=== PATIENT | male | born 1970 ===

== ENCOUNTER 2017-03-13 17:38 | Inpatient (IN) | payer MEDICARE, OTHER ==
--- NOTE | 2017-03-13 18:38 | C.PDOC ---
History Of Present Illness 46 year old male who was sent to ER by intermediate for scant blood in sputum from his tracheostomy. Patient states the same has happened before; however, with no significant findings. Patient reported to have pneumonia 1 months ago which has bee resolved. Denies any physical complaints. Time Seen by Provider: 03/13/17 18:26 Chief Complaint (Nursing): Medical Clearance History Per: Patient History/Exam Limitations: no limitations Onset/Duration Of Symptoms: Hrs Current Symptoms Are (Timing): Still Present Recent travel outside of the [place]: No Past Medical History Reviewed: Historical Data, Nursing Documentation, Vital Signs Vital Signs: Last Vital Signs Temp 98.2 F 03/13/17 23:58 Pulse 80 03/13/17 23:58 Resp 20 03/13/17 23:58 BP 148/82 03/13/17 23:58 Pulse Ox 97 03/13/17 23:58 - Medical History PMH: Anxiety, Depression, HTN, End Stage Renal Disease Surgical History: No Surg Hx Family History: States: Unknown Family Hx - Social History Hx Alcohol Use: No Hx Substance Use: No - Immunization History Hx Tetanus Toxoid Vaccination: No Hx Influenza Vaccination: No Hx Pneumococcal Vaccination: No Review Of Systems Constitutional: Negative for: Fever, Chills Gastrointestinal: Negative for: Nausea, Vomiting, Diarrhea Physical Exam - Physical Exam Appears: Non-toxic, No Acute Distress, Other (Thin tall black man) Skin: Normal Color, Warm, Dry Head: Atraumatic, Normacephalic Oral Mucosa: Moist Neck: Normal, Supple, Other (Tracheostomy with clear sputum) Chest: Symmetrical, No Tenderness Cardiovascular: Rhythm Regular, No Murmur Respiratory: Normal Breath Sounds, No Rales, No Rhonchi, No Wheezing Gastrointestinal/Abdominal: Soft, No Tenderness Extremity: Normal ROM (x4), Other (AV fistula to left upper arm) Neurological/Psych: Oriented x3, Normal Speech, Normal Cognition ED Course And Treatment - Laboratory Results Result Diagrams: 03/13/17 18:58 03/13/17 18:58 Lab Interpretation: Abnormal (no prior to compare: anemia, hyponatremia and dehydration, acute renal insufficiency, elev glu) ECG: Interpreted By Me, Viewed By Ms ECG Rhythm: Sinus Rhythm ECG Interpretation: Normal Rate From EC O2 Sat by Pulse Oximetry: 96 (Room air) Pulse Ox Interpretation: Normal - Radiology CXR: Interpreted by Me CXR Interpretation: Yes: Other (resolving RLL PNA (from 1 month ago, by history , no prior to compare here)) Progress Note: EKG, CXR, and blood culture ordered. Reevaluation Time: 19:30 Reassessment Condition: Improved - Physician Consult Information Outcome Of Conversation: 193: d/w Dr. Lisa Renteria, ok to Obs. Usual HD T/H/Sat, will arrange or d/c prior to tomorrow's session. Medical Decision Making Medical Decision Making: many lab abnormalities, no prior to compare, on HD T/H/Sat chronic anemia- prob anemia of CD renal insufficney and dehydration/hyponatremia in pt on HD Clear sputum now, scant blood streaked sputum may be related to tracheostomy: consider pulm/ENT consult in AM. Disposition Doctor Will See Patient In The: Hospital Counseled Patient/Family Regarding: Studies Performed, Diagnosis - Disposition Disposition: HOSPITALIZED Disposition Time: 19:31 Condition: GOOD - Clinical Impression Clinical Impression: Dehydration, Hyponatremia, Acute renal insufficiency - Scribe Statement The provider has reviewed the documentation as recorded by the Scribwindy Snyder All medical record entries made by the Eileenibwindy were at my direction and personally dictated by me. I have reviewed the chart and agree that the record accurately reflects my personal performance of the history, physical exam, medical decision making, and the department course for this patient. I have also personally directed, reviewed, and agree with the discharge instructions and disposition.
[2017-03-13 19:03] LABS: BASO # 0.1 K/uL (0.0-0.2); BASO % 0.8 % (0.0-2.0); EOS % 0.4 % (0.0-4.0); HEMATOCRIT 23.2 % (35.0-51.0); LYMPH # 1.2 K/uL (1.0-4.3); LYMPH % 14.4 % (20.0-40.0); MEAN CORPUSCULAR HEMOGLOBIN 31.3 pg (27.0-31.0); MEAN CORPUSCULAR HGB CONC 33.3 g/dL (33.0-37.0); MEAN PLATELET VOLUME 8.4 fL (7.2-11.7); MONO # 0.3 K/uL (0.0-0.8); MONO % 3.7 % (0.0-10.0); RED CELL DISTRIBUTION WIDTH 18.4 % (11.5-14.5); WHITE BLOOD COUNT 8.4 K/uL (4.8-10.8)
[2017-03-13 19:11] LABS: INR 0.9; POTASSIUM 4.6 mmol/L (3.6-5.2)
[2017-03-13 19:13] LABS: ALB/GLOB RATIO 1.2 (1.0-2.1); BILIRUBIN,TOTAL 0.5 mg/dL (0.2-1.3); TOTAL PROTEIN 5.8 g/dL (6.3-8.3)
[2017-03-13 19:14] LABS: CALCIUM 7.7 mg/dl (8.6-10.4)
[2017-03-13] MEDS ORDERED: Sodium Chloride 0.9% 1,000 ML IV ONE (19:25)
[2017-03-13] MEDS ORDERED: Azithromycin 500 MG in Sodium Chloride 0.9% 250 ML IVPB SCH (22:00)
[2017-03-13] MEDS ORDERED: Enoxaparin 30 mg Syringe SC SCH (22:30)
[2017-03-13] MEDS: MethylPREDNISolone 40 mg Vial IVP SCH (23:21)
--- NOTE | 2017-03-13 23:42 | CP.PCM.HP ---
History of Present Illness - History of Present Illness History of Present Illness: 46 years old male patient with past medical history of anxiety, depression, ESRD on hemodialysis, hypertension, S/P tracheostomy secondary to respiratory failure few months back sent to the emergency department from group home after having episode of bloody secretion from tracheostomy. Patient is also having mild shortness of breath at rest. Patient denies any chest pain, abdominal pain, limb swelling Patient is on antihypertensives for blood pressure control Severely deconditioned and bedbound with limited activity. No fever, nausea, vomiting, diarrhea Present on Admission - Present on Admission Any Indicators Present on Admission: No Past Patient History - Past Medical History & Family History Past Medical History?: Yes - Past Social History Smoking Status: Never Smoked - CARDIAC Hx Cardiac Disorders: Yes Hx Hypertension: Yes - PULMONARY Hx Respiratory Disorders: Yes Other/Comment: Respiratory failure s/p trach - NEUROLOGICAL Hx Neurological Disorder: No - HEENT Hx HEENT Problems: No - RENAL Hx Chronic Kidney Disease: Yes Hx Dialysis: Yes (Tue, Thus, Sat) Type of Dialysis Access: Left upper arm AV shunt Date of Last Dialysis Treatment: 03/12/17 - ENDOCRINE/METABOLIC Hx Endocrine Disorders: Yes Hx Diabetes Mellitus Type 2: Yes - HEMATOLOGICAL/ONCOLOGICAL Hx Blood Disorders: No - INTEGUMENTARY Hx Dermatological Problems: No - MUSCULOSKELETAL/RHEUMATOLOGICAL Hx Musculoskeletal Disorders: No Hx Falls: No - GASTROINTESTINAL Hx Gastrointestinal Disorders: Yes Other/Comment: Dysphagia - GENITOURINARY/GYNECOLOGICAL Hx Genitourinary Disorders: No - PSYCHIATRIC Hx Psychophysiologic Disorder: Yes Hx Anxiety: Yes Hx Depression: Yes Hx Substance Use: No - SURGICAL HISTORY Hx Surgeries: Yes Hx Vascular Access Device: Yes - ANESTHESIA Hx Anesthesia: Yes Hx Anesthesia Reactions: No Hx Malignant Hyperthermia: No Has any member of the family had a problem w/ anesthesia?: No Meds Home Medications: Home Medication List Medication Instructions Recorded Confirmed Type Azithromycin [Zithomax 500mg IV] 500 mg IV DAILY #3 pds 03/17/17 Rx Piperacill/Tazo 2.25gm in Dex 2.25 gm IVPB Q8H #28 bag 03/17/17 Rx [Zosyn 2.25 Gm IV Premix] Allergies/Adverse Reactions: Allergies Allergy/AdvReac Type Severity Reaction Status Date / Time No Known Allergies Allergy Unverified 03/13/17 17:52 Results - Vital Signs Recent Vital Signs: Last Vital Signs Temp 98 F 07/21/17 22:01 Pulse 81 03/13/17 22:01 Resp 20 03/13/17 22:13 BP 150/81 03/13/17 22:01 Pulse Ox 98 03/13/17 22:13 - Labs Result Diagrams: 03/17/17 09:54 03/17/17 09:54 Assessment & Plan (1) Acute renal insufficiency Status: Acute (2) Anemia Status: Acute (3) CHF (congestive heart failure) Status: Acute (4) Dehydration Status: Acute (5) ESRD (end stage renal disease) on dialysis Status: Acute (6) HTN (hypertension) Status: Acute (7) Hyponatremia Status: Acute (8) Pneumonia Status: Acute (9) SOB (shortness of breath) Status: Acute - Assessment and Plan (Free Text) Plan: meds and labs reviewed pulmo consult ID consult Cardio consult genaro same azithro lovenox solumedrol seroquel ceftriaxone close monitoring
[2017-03-13] MEDS: Azithromycin 500 MG in Sodium Chloride 0.9% 250 ML IVPB SCH (23:53)
[2017-03-14] MEDS: MethylPREDNISolone 40 mg Vial IVP SCH ×3 (06:21→22:25)
[2017-03-14] MEDS: Albuterol-Ipratrop 3 mg / 0.5 (3 ml) UD INH SCH ×4 (06:31→19:34)
[2017-03-14] MEDS: (Novolog) Insulin Aspart, Recombinant 100 u/ml 10 ml vial SC SCH ×4 (07:30→23:14)
--- NOTE | 2017-03-14 09:24 | RAD ---
PROCEDURE: CHEST RADIOGRAPH, 1 VIEW HISTORY: SOB COMPARISON: No prior study available for comparison FINDINGS: LUNGS: In situ tracheostomy tube in good position. Patchy right lower lobe infiltrate with questionable small bilateral effusions. Central pulmonary vasculature is also slightly increased; rule out rule out mild chronic compensated pulmonary edema/CHF PLEURA: As above. No apparent pneumothorax CARDIOVASCULAR: Heart appears enlarged OSSEOUS STRUCTURES: No significant abnormalities. VISUALIZED UPPER ABDOMEN: Normal. OTHER FINDINGS: None. IMPRESSION: In situ tracheostomy tube in good position. Patchy right lower lobe infiltrate with questionable small bilateral effusions. Central pulmonary vasculature is also slightly increased; rule out rule out mild chronic compensated pulmonary edema/CHF
[2017-03-14 09:48] LABS: IRON 67 ug/dL (49-181)
[2017-03-14] MEDS: Multivitamin Vitamin B Complex (Nephro-Vite) Tab PO SCH ×2 (10:00→12:55)
[2017-03-14] MEDS: Ferric Sodium Gluconat Complex 62.5 mg/5 ml Vial IVP SCH (10:16)
[2017-03-14] MEDS: Epoetin Alfa 10,000 unit/ml Dialysis IV SCH (10:17)
[2017-03-14] MEDS: Paricalcitol 2 mcg/ml Inj IV SCH (10:17)
--- NOTE | 2017-03-14 13:12 | CP.PCM.PN ---
Subjective - Date & Time of Evaluation Date of Evaluation: 03/14/17 Time of Evaluation: 09:40 - Subjective Subjective: clinically same Objective - Vital Signs/Intake and Output Vital Signs (last 24 hours): Temp Pulse Resp BP Pulse Ox 97.8 F 92 H 18 166/90 H 100 03/14/17 12:20 03/14/17 12:20 03/14/17 12:20 03/14/17 12:20 03/14/17 09:20 Intake and Output: 03/14/17 03/14/17 06:59 18:59 Intake Total 100 710 Balance 100 710 - Medications Medications: Current Medications Acetaminophen (Tylenol 325mg Tab) 650 mg PO Q4 PRN PRN Reason: Pain, moderate (4-7) Albuterol/Ipratropium (Duoneb 3 Mg/0.5 Mg (3 Ml) Ud) 3 ml INH RQ6 [facility] Last Admin: 03/14/17 08:44 Dose: 3 ml Amlodipine Besylate (Norvasc) 10 mg PO DAILY [facility] Amlodipine Besylate (Norvasc) 10 mg PO DAILY [facility] Calcium Acetate (Phoslo) 667 mg PO TID [facility] Last Admin: 03/14/17 12:54 Dose: 667 mg Clonazepam (Klonopin) 1 mg PO Q8 [facility] Last Admin: 03/14/17 06:17 Dose: 1 mg Epoetin David (Procrit) 10,000 unit IV TTS [facility] Last Admin: 03/14/17 10:17 Dose: 10,000 unit Escitalopram Oxalate (Lexapro) 10 mg PO DAILY [facility] Famotidine (Pepcid) 20 mg PO DAILY [facility] Ferric Sodium Gluconate Complex (Ferrlecit) 125 mg IVP TTS [facility] Stop: 03/19/17 10:01 Last Admin: 03/14/17 10:16 Dose: 125 mg Azithromycin 500 mg/ Sodium (Chloride) 250 mls @ 250 mls/hr IVPB Q24H [facility] Last Admin: 03/13/17 23:53 Dose: 250 mls/hr Ceftriaxone Sodium 1 gm/ (Sodium Chloride) 100 mls @ 100 mls/hr IVPB Q24H [facility] Last Admin: 03/13/17 23:52 Dose: 100 mls/hr Insulin Aspart (Novolog) 0 unit SC ACHS [facility] PRN Reason: Protocol Methylprednisolone (Solu-Medrol) 40 mg IVP Q8H [facility] Last Admin: 03/14/17 06:21 Dose: 40 mg Metoprolol Tartrate (Lopressor) 25 mg PO BID [facility] Paricalcitol (Zemplar) 2 mcg IV TTS [facility] Last Admin: 03/14/17 10:17 Dose: 2 mcg Quetiapine Fumarate (Seroquel) 50 mg PO HS [facility] Last Admin: 03/13/17 23:26 Dose: 50 mg Vitamin B Complex/Vit C/Folic Acid (Nephro-Autumn) 1 tab PO DAILY [facility] Last Admin: 03/14/17 12:55 Dose: 1 tab - Labs Labs: PT 10.4 SECONDS (9.7-12.2) 03/13/17 18:58 INR 0.9 03/13/17 18:58 APTT 34 SECONDS (21-34) 03/13/17 18:58 - Constitutional Appears: Well - Head Exam Head Exam: ATRAUMATIC, NORMAL INSPECTION, NORMOCEPHALIC - Eye Exam Eye Exam: EOMI, Normal appearance, PERRL Pupil Exam: NORMAL ACCOMODATION, PERRL - ENT Exam ENT Exam: Mucous Membranes Moist, Normal Exam - Neck Exam Neck Exam: Full ROM, Normal Inspection. absent: Lymphadenopathy - Respiratory Exam Respiratory Exam: Decreased Breath Sounds - Cardiovascular Exam Cardiovascular Exam: REGULAR RHYTHM, +S1, +S2 - GI/Abdominal Exam GI & Abdominal Exam: Soft, Diminished Bowel Sounds - Rectal Exam Rectal Exam: Deferred Assessment and Plan (1) Acute renal insufficiency Status: Acute (2) Anemia Status: Acute (3) CHF (congestive heart failure) Status: Acute (4) Dehydration Status: Acute (5) ESRD (end stage renal disease) on dialysis Status: Acute (6) HTN (hypertension) Status: Acute (7) Hyponatremia Status: Acute (8) Pneumonia Status: Acute (9) SOB (shortness of breath) Status: Acute - Assessment and Plan (Free Text) Plan: Patient stable Status post transfusion 2 PRBC Mnitor H&H Hemodialysis Continue antibiotics accucheks insulin procrit BP control pulgeraldine rivers on board
--- NOTE | 2017-03-14 13:56 | CP.PCM.CON ---
History of Present Illness - History of Present Illness History of Present Illness: pt seen and examined full consult is dictated #[id number] s/p transfusion of 2 u prbc, s/p hd uf about 3 lit f/u h/h in am Past Patient History - Past Medical History & Family History Past Medical History?: Yes - Past Social History Smoking Status: Never Smoked - CARDIAC Hx Hypertension: Yes - PULMONARY Hx Respiratory Disorders: Yes Other/Comment: Respiratory failure s/p trach - NEUROLOGICAL Hx Neurological Disorder: No - HEENT Hx HEENT Problems: No - RENAL Hx Chronic Kidney Disease: Yes Hx Dialysis: Yes (Tue, Thus, Sat) Type of Dialysis Access: Left upper arm AV shunt Date of Last Dialysis Treatment: 03/12/17 - ENDOCRINE/METABOLIC Hx Endocrine Disorders: Yes Hx Diabetes Mellitus Type 2: Yes - HEMATOLOGICAL/ONCOLOGICAL Hx Blood Disorders: No - INTEGUMENTARY Hx Dermatological Problems: No - MUSCULOSKELETAL/RHEUMATOLOGICAL Hx Musculoskeletal Disorders: No Hx Falls: No - GASTROINTESTINAL Hx Gastrointestinal Disorders: Yes Other/Comment: Dysphagia - GENITOURINARY/GYNECOLOGICAL Hx Genitourinary Disorders: No - PSYCHIATRIC Hx Anxiety: Yes Hx Depression: Yes Hx Substance Use: No - SURGICAL HISTORY Hx Surgeries: Yes Hx Vascular Access Device: Yes - ANESTHESIA Hx Anesthesia: Yes Hx Anesthesia Reactions: No Hx Malignant Hyperthermia: No Has any member of the family had a problem w/ anesthesia?: No Meds Allergies/Adverse Reactions: Allergies Allergy/AdvReac Type Severity Reaction Status Date / Time No Known Allergies Allergy Unverified 03/13/17 17:52 - Medications Medications: Current Medications Acetaminophen (Tylenol 325mg Tab) 650 mg PO Q4 PRN PRN Reason: Pain, moderate (4-7) Albuterol/Ipratropium (Duoneb 3 Mg/0.5 Mg (3 Ml) Ud) 3 ml INH RQ6 [facility] Last Admin: 03/14/17 13:40 Dose: 3 ml Amlodipine Besylate (Norvasc) 10 mg PO DAILY [facility] Amlodipine Besylate (Norvasc) 10 mg PO DAILY [facility] Calcium Acetate (Phoslo) 667 mg PO TID [facility] Last Admin: 03/14/17 12:54 Dose: 667 mg Clonazepam (Klonopin) 1 mg PO Q8 [facility] Last Admin: 03/14/17 06:17 Dose: 1 mg Epoetin David (Procrit) 10,000 unit IV TTS [facility] Last Admin: 03/14/17 10:17 Dose: 10,000 unit Escitalopram Oxalate (Lexapro) 10 mg PO DAILY [facility] Famotidine (Pepcid) 20 mg PO DAILY [facility] Ferric Sodium Gluconate Complex (Ferrlecit) 125 mg IVP TTS [facility] Stop: 03/19/17 10:01 Last Admin: 03/14/17 10:16 Dose: 125 mg Azithromycin 500 mg/ Sodium (Chloride) 250 mls @ 250 mls/hr IVPB Q24H [facility] Last Admin: 03/13/17 23:53 Dose: 250 mls/hr Ceftriaxone Sodium 1 gm/ (Sodium Chloride) 100 mls @ 100 mls/hr IVPB Q24H [facility] Last Admin: 03/13/17 23:52 Dose: 100 mls/hr Insulin Aspart (Novolog) 0 unit SC ACHS [facility] PRN Reason: Protocol Methylprednisolone (Solu-Medrol) 40 mg IVP Q8H [facility] Last Admin: 03/14/17 06:21 Dose: 40 mg Metoprolol Tartrate (Lopressor) 25 mg PO BID [facility] Paricalcitol (Zemplar) 2 mcg IV TTS [facility] Last Admin: 03/14/17 10:17 Dose: 2 mcg Quetiapine Fumarate (Seroquel) 50 mg PO HS [facility] Last Admin: 03/13/17 23:26 Dose: 50 mg Vitamin B Complex/Vit C/Folic Acid (Nephro-Autumn) 1 tab PO DAILY [facility] Last Admin: 03/14/17 12:55 Dose: 1 tab Results - Vital Signs Recent Vital Signs: Last Vital Signs Temp 97.8 F 03/14/17 12:20 Pulse 92 H 03/14/17 12:20 Resp 18 03/14/17 12:20 BP 166/90 H 03/14/17 12:20 Pulse Ox 100 03/14/17 09:20 - Labs Result Diagrams: 03/13/17 18:58 03/13/17 18:58 Labs: Laboratory Results - last 24 hr 03/14/17 03/14/17 03/14/17 07:20 09:00 09:33 POC Glucose (mg/dL) 205 H Iron 67 TIBC 177 L Ferritin Hep Bs Antigen Blood Type B POSITIVE Blood Type Confirm B POSITIVE Antibody Screen Negative 03/14/17 03/14/17 09:33 11:53 POC Glucose (mg/dL) 174 H Iron TIBC Ferritin 799.0 Hep Bs Antigen Negative Blood Type Blood Type Confirm Antibody Screen
--- NOTE | 2017-03-14 20:46 | CP.PCM.CON ---
History of Present Illness - History of Present Illness History of Present Illness: reason for consultation: hemoptysis and lung infiltrate status post tracheostomy 46-year-old male with history of hypertension, end-stage renal disease on hemodialysis, respiratory failure status post tracheostomy was transferred from senior living for blood tinged sputum. Chest x-ray done in the hospital showed right lung infiltrate. Patient lying comfortably in no acute distress. Unable to get further information. Patient was transfused 2 units packed RBCs during hemodialysis Review of Systems - Review of Systems All systems: reviewed and no additional remarkable complaints except (blood- tinged sputum) Past Patient History - Past Medical History & Family History Past Medical History?: Yes - Past Social History Smoking Status: Never Smoked - CARDIAC Hx Hypertension: Yes - PULMONARY Hx Respiratory Disorders: Yes Other/Comment: Respiratory failure s/p trach - NEUROLOGICAL Hx Neurological Disorder: No - HEENT Hx HEENT Problems: No - RENAL Hx Chronic Kidney Disease: Yes Hx Dialysis: Yes (Tue, Thus, Sat) Type of Dialysis Access: Left upper arm AV shunt Date of Last Dialysis Treatment: 03/12/17 - ENDOCRINE/METABOLIC Hx Endocrine Disorders: Yes Hx Diabetes Mellitus Type 2: Yes - HEMATOLOGICAL/ONCOLOGICAL Hx Blood Disorders: No - INTEGUMENTARY Hx Dermatological Problems: No - MUSCULOSKELETAL/RHEUMATOLOGICAL Hx Musculoskeletal Disorders: No Hx Falls: No - GASTROINTESTINAL Hx Gastrointestinal Disorders: Yes Other/Comment: Dysphagia - GENITOURINARY/GYNECOLOGICAL Hx Genitourinary Disorders: No - PSYCHIATRIC Hx Anxiety: Yes Hx Depression: Yes Hx Substance Use: No - SURGICAL HISTORY Hx Surgeries: Yes Hx Vascular Access Device: Yes - ANESTHESIA Hx Anesthesia: Yes Hx Anesthesia Reactions: No Hx Malignant Hyperthermia: No Has any member of the family had a problem w/ anesthesia?: No Meds Allergies/Adverse Reactions: Allergies Allergy/AdvReac Type Severity Reaction Status Date / Time No Known Allergies Allergy Unverified 03/13/17 17:52 - Medications Medications: Current Medications Acetaminophen (Tylenol 325mg Tab) 650 mg PO Q4 PRN PRN Reason: Pain, moderate (4-7) Albuterol/Ipratropium (Duoneb 3 Mg/0.5 Mg (3 Ml) Ud) 3 ml INH RQ6 [facility] Last Admin: 03/14/17 19:34 Dose: 3 ml Amlodipine Besylate (Norvasc) 10 mg PO DAILY [facility] Last Admin: 03/14/17 10:00 Dose: 10 mg Amlodipine Besylate (Norvasc) 10 mg PO DAILY [facility] Last Admin: 03/14/17 10:00 Dose: Not Given Calcium Acetate (Phoslo) 667 mg PO TID [facility] Last Admin: 03/14/17 17:41 Dose: 667 mg Clonazepam (Klonopin) 1 mg PO Q8 [facility] Last Admin: 03/14/17 14:08 Dose: 1 mg Epoetin David (Procrit) 10,000 unit IV TTS [facility] Last Admin: 03/14/17 10:17 Dose: 10,000 unit Escitalopram Oxalate (Lexapro) 10 mg PO DAILY [facility] Last Admin: 03/14/17 10:00 Dose: 10 mg Famotidine (Pepcid) 20 mg PO DAILY [facility] Last Admin: 03/14/17 10:00 Dose: 20 mg Ferric Sodium Gluconate Complex (Ferrlecit) 125 mg IVP TTS [facility] Stop: 03/19/17 10:01 Last Admin: 03/14/17 10:16 Dose: 125 mg Azithromycin 500 mg/ Sodium (Chloride) 250 mls @ 250 mls/hr IVPB Q24H [facility] Last Admin: 03/13/17 23:53 Dose: 250 mls/hr Ceftriaxone Sodium 1 gm/ (Sodium Chloride) 100 mls @ 100 mls/hr IVPB Q24H [facility] Last Admin: 03/13/17 23:52 Dose: 100 mls/hr Insulin Aspart (Novolog) 0 unit SC ACHS [facility] PRN Reason: Protocol Last Admin: 03/14/17 17:41 Dose: 4 unit Methylprednisolone (Solu-Medrol) 40 mg IVP Q8H [facility] Last Admin: 03/14/17 14:16 Dose: 40 mg Metoprolol Tartrate (Lopressor) 25 mg PO BID [facility] Paricalcitol (Zemplar) 2 mcg IV TTS [facility] Last Admin: 03/14/17 10:17 Dose: 2 mcg Quetiapine Fumarate (Seroquel) 50 mg PO HS [facility] Last Admin: 03/13/17 23:26 Dose: 50 mg Vitamin B Complex/Vit C/Folic Acid (Nephro-Autumn) 1 tab PO DAILY [facility] Last Admin: 03/14/17 12:55 Dose: 1 tab Physical Exam - Head Exam Head Exam: ATRAUMATIC, NORMOCEPHALIC - ENT Exam ENT Exam: Mucous Membranes Moist - Neck Exam Additional comments: tracheostomy in place - Respiratory Exam Respiratory Exam: Decreased Breath Sounds - Cardiovascular Exam Cardiovascular Exam: REGULAR RHYTHM Results - Vital Signs Recent Vital Signs: Last Vital Signs Temp 98.1 F 03/14/17 16:00 Pulse 95 H 03/14/17 16:00 Resp 20 03/14/17 16:00 BP 173/83 H 03/14/17 16:00 Pulse Ox 98 03/14/17 16:00 - Labs Result Diagrams: 03/13/17 18:58 03/13/17 18:58 Labs: Laboratory Results - last 24 hr 03/14/17 16:39 POC Glucose (mg/dL) 328 H Assessment & Plan (1) Pneumonia Assessment and Plan: continue IV antibioti Will try to decannulate on Thursday Followup culture and sensit Tracheal aspirate for culture and se Nebulizer treatment and steroids Status: Acute (2) ESRD (end stage renal disease) on dialysis Status: Acute (3) Anemia Status: Acute
[2017-03-14] MEDS: Piperacill/Tazo 2.25gm in Dex 2.25 GM/50 ML BAG IVPB SCH (22:32)
[2017-03-15] MEDS: Azithromycin 500 MG in Sodium Chloride 0.9% 250 ML IVPB SCH ×2 (00:24→22:45)
[2017-03-15] MEDS: Albuterol-Ipratrop 3 mg / 0.5 (3 ml) UD INH SCH ×4 (02:13→19:18)
--- NOTE | 2017-03-15 02:51 | CP.PCM.CON ---
History of Present Illness - History of Present Illness History of Present Illness: CC: SOB , hemoptysis HPI: 46-year-old -[place]ish male with a history of end-stage renal disease on hemodialysis status post tracheostomy couple of months back secondary to his respiratory failure was transferred from snf secondary to episode of bloody secretions from the trach site. Patient at baseline severely deconditioned and mostly bedbound with limited activity. On antihypertensives. Denies having any chest pains. Noticed some difficulty breathing was found to have a new right sided lung opacity consistent with possible pneumonia.Cardiac history nonsignificant I were trying to go obtain records for the etiology of his respiratory failure and tracheostomy.At the time of my evaluation he denies having any chest pains does have shortness of breath at rest with tracheal secretions which was bloody in nature he has been initiated on antibiotics and was seen by pulmonology for evaluation of possible bronchoscopy. Review of Systems - Review of Systems All systems: reviewed and no additional remarkable complaints except - Constitutional Constitutional: Fatigue, Fever, Lethargy, Malaise - EENT Eyes: As Per HPI Ears: As Per HPI Nose/Mouth/Throat: As Per HPI (tracheal bloody secretions ) - Cardiovascular Cardiovascular: Dyspnea - Gastrointestinal Gastrointestinal: As Per HPI - Musculoskeletal Musculoskeletal: As Per HPI - Integumentary Integumentary: As Per HPI - Neurological Neurological: As Per HPI - Psychiatric Psychiatric: As Per HPI - Endocrine Endocrine: As Per HPI - Hematologic/Lymphatic Hematologic: As Per HPI Past Patient History - Past Medical History & Family History Past Medical History?: Yes Pertinent Family History: positive for HTN no family hx of premature CAD - Past Social History Smoking Status: Never Smoked - CARDIAC Hx Hypertension: Yes - PULMONARY Hx Respiratory Disorders: Yes Other/Comment: Respiratory failure s/p trach - NEUROLOGICAL Hx Neurological Disorder: No - HEENT Hx HEENT Problems: No - RENAL Hx Chronic Kidney Disease: Yes Hx Dialysis: Yes (Tue, Thus, Sat) Type of Dialysis Access: Left upper arm AV shunt Date of Last Dialysis Treatment: 03/12/17 - ENDOCRINE/METABOLIC Hx Endocrine Disorders: Yes Hx Diabetes Mellitus Type 2: Yes - HEMATOLOGICAL/ONCOLOGICAL Hx Blood Disorders: No - INTEGUMENTARY Hx Dermatological Problems: No - MUSCULOSKELETAL/RHEUMATOLOGICAL Hx Musculoskeletal Disorders: No Hx Falls: No - GASTROINTESTINAL Hx Gastrointestinal Disorders: Yes Other/Comment: Dysphagia - GENITOURINARY/GYNECOLOGICAL Hx Genitourinary Disorders: No - PSYCHIATRIC Hx Anxiety: Yes Hx Depression: Yes Hx Substance Use: No - SURGICAL HISTORY Hx Surgeries: Yes Hx Vascular Access Device: Yes - ANESTHESIA Hx Anesthesia: Yes Hx Anesthesia Reactions: No Hx Malignant Hyperthermia: No Has any member of the family had a problem w/ anesthesia?: No Meds Allergies/Adverse Reactions: Allergies Allergy/AdvReac Type Severity Reaction Status Date / Time No Known Allergies Allergy Unverified 03/13/17 17:52 - Medications Medications: Current Medications Acetaminophen (Tylenol 325mg Tab) 650 mg PO Q4 PRN PRN Reason: Pain, moderate (4-7) Albuterol/Ipratropium (Duoneb 3 Mg/0.5 Mg (3 Ml) Ud) 3 ml INH RQ6 [facility] Last Admin: 03/15/17 02:13 Dose: 3 ml Amlodipine Besylate (Norvasc) 10 mg PO DAILY [facility] Last Admin: 03/14/17 10:00 Dose: 10 mg Amlodipine Besylate (Norvasc) 10 mg PO DAILY [facility] Last Admin: 03/14/17 10:00 Dose: Not Given Calcium Acetate (Phoslo) 667 mg PO TID [facility] Last Admin: 03/14/17 17:41 Dose: 667 mg Clonazepam (Klonopin) 1 mg PO Q8 [facility] Last Admin: 03/14/17 22:25 Dose: 1 mg Epoetin David (Procrit) 10,000 unit IV TTS [facility] Last Admin: 03/14/17 10:17 Dose: 10,000 unit Escitalopram Oxalate (Lexapro) 10 mg PO DAILY [facility] Last Admin: 03/14/17 10:00 Dose: 10 mg Famotidine (Pepcid) 20 mg PO DAILY [facility] Last Admin: 03/14/17 10:00 Dose: 20 mg Ferric Sodium Gluconate Complex (Ferrlecit) 125 mg IVP TTS [facility] Stop: 03/19/17 10:01 Last Admin: 03/14/17 10:16 Dose: 125 mg Azithromycin 500 mg/ Sodium (Chloride) 250 mls @ 250 mls/hr IVPB Q24H [facility] Last Admin: 03/15/17 00:24 Dose: 250 mls/hr Piperacillin Sod/Tazobactam Sod (Zosyn 2.25 Gm Iv Premix) 2.25 gm in 50 mls @ 100 mls/hr IVPB Q8H [facility] Last Admin: 03/14/17 22:32 Dose: 100 mls/hr Insulin Aspart (Novolog) 0 unit SC ACHS [facility] PRN Reason: Protocol Last Admin: 03/14/17 23:14 Dose: Not Given Methylprednisolone (Solu-Medrol) 40 mg IVP Q8H [facility] Last Admin: 03/14/17 22:25 Dose: 40 mg Metoprolol Tartrate (Lopressor) 25 mg PO BID [facility] Paricalcitol (Zemplar) 2 mcg IV TTS [facility] Last Admin: 03/14/17 10:17 Dose: 2 mcg Quetiapine Fumarate (Seroquel) 50 mg PO HS [facility] Last Admin: 03/14/17 22:25 Dose: 50 mg Vitamin B Complex/Vit C/Folic Acid (Nephro-Autumn) 1 tab PO DAILY [facility] Last Admin: 03/14/17 12:55 Dose: 1 tab Physical Exam - Constitutional Appears: No Acute Distress - Head Exam Head Exam: ATRAUMATIC, NORMAL INSPECTION, NORMOCEPHALIC - Eye Exam Eye Exam: EOMI, Normal appearance, PERRL Pupil Exam: NORMAL ACCOMODATION, PERRL - ENT Exam ENT Exam: Mucous Membranes Moist, Normal Exam Additional comments: tracheostomy site stable with bloody secretions - Neck Exam Neck exam: Positive for: Normal Inspection - Respiratory Exam Respiratory Exam: Decreased Breath Sounds, Rhonchi, Respiratory Distress - Cardiovascular Exam Cardiovascular Exam: REGULAR RHYTHM, RRR, +S1, +S2, Systolic Murmur - GI/Abdominal Exam GI & Abdominal Exam: Normal Bowel Sounds, Soft. absent: Tenderness - Rectal Exam Rectal Exam: Deferred - Back Exam Back exam: NORMAL INSPECTION - Neurological Exam Neurological exam: Alert, CN II-XII Intact, Reflexes Normal - Psychiatric Exam Psychiatric exam: Normal Affect, Normal Mood - Skin Skin Exam: Dry, Intact, Normal Color, Warm Results - Vital Signs Recent Vital Signs: Last Vital Signs Temp 98.8 F 03/14/17 23:00 Pulse 91 H 03/14/17 23:00 Resp 22 03/14/17 23:00 BP 162/82 H 03/14/17 23:00 Pulse Ox 97 03/14/17 23:00 - Labs Result Diagrams: 03/13/17 18:58 03/13/17 18:58 Labs: Laboratory Results - last 24 hr 03/14/17 03/14/17 16:39 21:23 POC Glucose (mg/dL) 328 H 339 H Assessment & Plan (1) SOB (shortness of breath) Assessment and Plan: etiology most likely pulmonary in nature from pneumonia will check echocardiogram to assess LV Fx and filling pressures IV abx per primary team fluild removal with HD Status: Acute (2) HTN (hypertension) Assessment and Plan: cont BP meds from NH monitor closely Status: Acute (3) CHF (congestive heart failure) Assessment and Plan: diastolic acute on chronic most likely secondary to pulmonary infection will check echocardiogram Status: Acute
--- NOTE | 2017-03-15 03:23 | CON ---
RENAL CONSULTATION REQUESTED BY: Dr. Dario Renteria. REASON FOR RENAL CONSULTATION: End-stage renal disease for continuation of hemodialysis, anemia and blood in the tracheostomy secretions. HISTORY OF PRESENT ILLNESS: Mr. Herrera is a 46-year-old middle-aged male with history of diabetes for about 10 years; hypertension for 1 year; end-stage renal disease, on hemodialysis for 10 months, who was recently admitted to the [facility] subacute rehab for weaning off tracheostomy. The patient had respiratory failure and unable to wean him off and tracheal stenosis, status post tracheostomy, was recently transferred to the [facility] from the hospital and started dialysis on 03/07 in [facility]. Now, the patient was sent to the [facility] for blood tinged secretions from the tracheostomy tube. The patient denies any chest pain or palpitation. Denies any fever or cough. Denies any abdominal pain. Denies any nausea, vomiting or diarrhea. The patient does complains of coughing up slightly blood tinged sputum from the tracheostomy tube. PAST MEDICAL HISTORY: Significant for diabetes for 10 years, hypertension for 1 year and end-stage renal disease, on hemodialysis for 10 months. PAST SURGICAL HISTORY: Status post left upper extremity AV fistula and also status post amputation of the left fifth toe. ALLERGIES: NO KNOWN DRUG ALLERGIES. SOCIAL HISTORY: Denies any smoking, alcohol, or drugs. FAMILY HISTORY: Not significant. CURRENT MEDICATIONS: Azithromycin 500 mg q. 24 hours, DuoNeb inhaler q. 6 hours, Ferrlecit 125 mg 3 times a week, Clonopin 1 mg p.o. q. 8 hours, Lexapro 10 mg p.o. daily, Lopressor 25 mg p.o. b.i.d., Nephro-Autumn 1 tablet daily, Norvasc 10 mg p.o. daily, NovoLog insulin per sliding scale, Pepcid 20 mg p.o. daily, calcium acetate 667 mg p.o. t.i.d., Procrit 10,000 units 3 times a week, Seroquel 50 mg p.o. at bedtime, Solu-Medrol 40 mg IV q. 8 hours. REVIEW OF SYSTEMS: Significant for anemia and also coughing slightly blood tinged sputum from the tracheostomy cannula. PHYSICAL EXAMINATION: VITAL SIGNS: Blood pressure 173/83, pulse 95, respirations 20, temperature 98.1 and saturations 98%. Height 5 feet and 8 inches and weight is 148 pounds. GENERAL: Mr. Herrera is a 46-year-old middle-aged male, moderately built, moderately nourished, not in acute distress. HEENT: Pupils normal, reactive to light and accommodation. Conjunctivae pale. Sclerae anicteric. Tongue is moist. Trachea is midline. The patient has tracheostomy. LUNGS: Symmetric on both side. Bilateral breath sounds present. Occasional basal crackles present on the right base. CVS: [place] of the fifth intercostal space, midclavicular line, S1 and S2 audible. No murmur or gallop. ABDOMEN: Normal in appearance. Soft and tympanic. No guarding. No hepatosplenomegaly. TEST DESKMAN: The patient is alert, awake and oriented x3. Nonfocal on examination. Cranial nerves II through XII grossly intact. Sensory and motor examination within normal limits. EXTREMITIES: No cyanosis. No clubbing. No edema. The patient has amputation of the left fifth toe. LABORATORY DATA: Include as follows as of 03/13/2017, WBC 8.4, hemoglobin 7.7, hematocrit is 23.2 and platelets 242. PT 10.4 and PTT 34. Sodium 128, potassium 4.6, chloride 93, CO2 of 28, BUN 40, creatinine 3.9, glucose is 166, calcium is 7.7, total bili 0.5, AST 28, ALT 52, alkaline phosphatase is 149, total protein 5.8 and albumin is 3.1. Hepatitis B surface antigen is negative. Other laboratory data; iron is 67, TIBC 177, and ferritin is 799. Chest x-ray tracheostomy tube in good position, patchy right lower lobe infiltrate with questionable small bilateral effusions, rule out venous congestion. ASSESSMENT: In summary, Mr. Herrera is a 46-year-old middle-aged male with history of diabetes, hypertension, end-stage renal disease, respiratory failure, status post tracheostomy, anemia, was sent [facility] [place] [facility] for the coughing up blood tinged secretions from the tracheostomy cannula with right lower infiltrates and low H and H. 1. End-stage renal disease, continue hemodialysis 3 times a week on Thursday, and Thursday. 2. Anemia mostly likely secondary to end-stage renal disease. Continue Epogen 3 times a week 10,000 units and also will continue Nephrocaps 1 tablet daily and Ferrlecit 125 mg IV piggyback x1 dose. The patient received 2 units of packed RBC during hemodialysis today and followup H and H. 3. Hypertension, blood pressure is stable. Continue his current medications Norvasc 10 mg, Lopressor 25 mg p.o. b.i.d., titrate Lopressor as needed and will consider to add hydralazine to keep his blood pressure below 130/80. 4. Pneumonia. Continue antibiotics as per the pulmonary, azithromycin and also Solu-Medrol. We will follow with you. Thank you for allowing me to participate in your patient's care. We will also check phosphorus level and PTH level with next blood draw. Kalie Hayward MD
[2017-03-15] MEDS: Piperacill/Tazo 2.25gm in Dex 2.25 GM/50 ML BAG IVPB SCH ×3 (05:24→21:37)
[2017-03-15] MEDS: MethylPREDNISolone 40 mg Vial IVP SCH ×4 (06:38→22:44)
[2017-03-15] MEDS: (Novolog) Insulin Aspart, Recombinant 100 u/ml 10 ml vial SC SCH ×4 (08:30→21:59)
[2017-03-15 08:34] LABS: HEMATOCRIT 29.2 % (35.0-51.0); MEAN CELL VOLUME 93.1 fL (80.0-94.0); MEAN CORPUSCULAR HEMOGLOBIN 30.5 pg (27.0-31.0); MEAN CORPUSCULAR HGB CONC 32.7 g/dL (33.0-37.0); MEAN PLATELET VOLUME 9.2 fL (7.2-11.7); RED CELL DISTRIBUTION WIDTH 18.2 % (11.5-14.5); WHITE BLOOD COUNT 13.6 K/uL (4.8-10.8)
[2017-03-15 08:39] LABS: PHOSPHOROUS 3.4 mg/dL (2.5-4.5)
[2017-03-15] MEDS: Multivitamin Vitamin B Complex (Nephro-Vite) Tab PO SCH (10:45)
--- NOTE | 2017-03-15 12:35 | CP.PCM.PN ---
Subjective - Date & Time of Evaluation Date of Evaluation: 03/15/17 Time of Evaluation: 10:20 - Subjective Subjective: clinically same Objective - Vital Signs/Intake and Output Vital Signs (last 24 hours): Temp Pulse Resp BP Pulse Ox 98.2 F 92 H 20 175/90 H 96 03/15/17 07:40 03/15/17 07:40 03/15/17 07:40 03/15/17 10:45 03/15/17 07:40 Intake and Output: 03/15/17 03/15/17 06:59 18:59 Intake Total 450 480 Balance 450 480 - Medications Medications: Current Medications Acetaminophen (Tylenol 325mg Tab) 650 mg PO Q4 PRN PRN Reason: Pain, moderate (4-7) Albuterol/Ipratropium (Duoneb 3 Mg/0.5 Mg (3 Ml) Ud) 3 ml INH RQ6 [facility] Last Admin: 03/15/17 08:35 Dose: 3 ml Amlodipine Besylate (Norvasc) 10 mg PO DAILY [facility] Last Admin: 03/15/17 10:45 Dose: 10 mg Amlodipine Besylate (Norvasc) 10 mg PO DAILY [facility] Last Admin: 03/15/17 10:46 Dose: Not Given Calcium Acetate (Phoslo) 667 mg PO TID [facility] Last Admin: 03/15/17 10:45 Dose: 667 mg Clonazepam (Klonopin) 1 mg PO Q8 [facility] Last Admin: 03/15/17 05:28 Dose: 1 mg Epoetin David (Procrit) 10,000 unit IV TTS [facility] Last Admin: 03/14/17 10:17 Dose: 10,000 unit Escitalopram Oxalate (Lexapro) 10 mg PO DAILY [facility] Last Admin: 03/15/17 10:45 Dose: 10 mg Famotidine (Pepcid) 20 mg PO DAILY [facility] Last Admin: 03/15/17 10:46 Dose: 20 mg Ferric Sodium Gluconate Complex (Ferrlecit) 125 mg IVP TTS [facility] Stop: 03/19/17 10:01 Last Admin: 03/14/17 10:16 Dose: 125 mg Azithromycin 500 mg/ Sodium (Chloride) 250 mls @ 250 mls/hr IVPB Q24H [facility] Last Admin: 03/15/17 00:24 Dose: 250 mls/hr Piperacillin Sod/Tazobactam Sod (Zosyn 2.25 Gm Iv Premix) 2.25 gm in 50 mls @ 100 mls/hr IVPB Q8H [facility] Last Admin: 03/15/17 05:24 Dose: 100 mls/hr Insulin Aspart (Novolog) 0 unit SC ACHS [facility] PRN Reason: Protocol Last Admin: 03/15/17 12:21 Dose: 4 unit Methylprednisolone (Solu-Medrol) 40 mg IVP Q8H [facility] Last Admin: 03/15/17 06:38 Dose: 40 mg Metoprolol Tartrate (Lopressor) 25 mg PO BID [facility] Last Admin: 03/15/17 10:45 Dose: 25 mg Paricalcitol (Zemplar) 2 mcg IV TTS [facility] Last Admin: 03/14/17 10:17 Dose: 2 mcg Quetiapine Fumarate (Seroquel) 50 mg PO HS [facility] Last Admin: 03/14/17 22:25 Dose: 50 mg Vitamin B Complex/Vit C/Folic Acid (Nephro-Autumn) 1 tab PO DAILY [facility] Last Admin: 03/15/17 10:45 Dose: 1 tab - Labs Labs: 03/15/17 08:13 PT 10.4 SECONDS (9.7-12.2) 03/13/17 18:58 INR 0.9 03/13/17 18:58 APTT 34 SECONDS (21-34) 03/13/17 18:58 - Constitutional Appears: Well - Head Exam Head Exam: ATRAUMATIC, NORMAL INSPECTION, NORMOCEPHALIC - Eye Exam Eye Exam: EOMI, Normal appearance, PERRL Pupil Exam: NORMAL ACCOMODATION, PERRL - ENT Exam ENT Exam: Mucous Membranes Moist, Normal Exam - Neck Exam Neck Exam: Full ROM, Normal Inspection. absent: Lymphadenopathy - Respiratory Exam Respiratory Exam: Decreased Breath Sounds - Cardiovascular Exam Cardiovascular Exam: REGULAR RHYTHM, +S1, +S2. absent: Murmur - GI/Abdominal Exam GI & Abdominal Exam: Soft, Diminished Bowel Sounds - Rectal Exam Rectal Exam: Deferred Assessment and Plan (1) Acute renal insufficiency Status: Acute (2) Anemia Status: Acute (3) CHF (congestive heart failure) Status: Acute (4) Dehydration Status: Acute (5) ESRD (end stage renal disease) on dialysis Status: Acute (6) HTN (hypertension) Status: Acute (7) Hyponatremia Status: Acute (8) Pneumonia Status: Acute (9) SOB (shortness of breath) Status: Acute - Assessment and Plan (Free Text) Plan: Continue same patient Patient clinically improving Hemodialysis Continue IV antibiotics Azithromycin Zosyn Solu-Medrol Blood pressure control Cultures awaited Multiple consults Physical therapy screening Procrit Blood sugar control Continue as ordered
--- NOTE | 2017-03-15 15:21 | CP.PCM.PN ---
Subjective - Date & Time of Evaluation Date of Evaluation: 03/15/17 Time of Evaluation: 15:21 - Subjective Subjective: pt is seen and examined, follow up consult is dictated #[id number] Objective - Vital Signs/Intake and Output Vital Signs (last 24 hours): Temp Pulse Resp BP Pulse Ox 98.2 F 92 H 20 175/90 H 96 03/15/17 07:40 03/15/17 07:40 03/15/17 07:40 03/15/17 10:45 03/15/17 07:40 Intake and Output: 03/15/17 03/15/17 06:59 18:59 Intake Total 450 480 Balance 450 480 - Medications Medications: Current Medications Acetaminophen (Tylenol 325mg Tab) 650 mg PO Q4 PRN PRN Reason: Pain, moderate (4-7) Albuterol/Ipratropium (Duoneb 3 Mg/0.5 Mg (3 Ml) Ud) 3 ml INH RQ6 [facility] Last Admin: 03/15/17 13:42 Dose: 3 ml Amlodipine Besylate (Norvasc) 10 mg PO DAILY [facility] Last Admin: 03/15/17 10:45 Dose: 10 mg Amlodipine Besylate (Norvasc) 10 mg PO DAILY [facility] Last Admin: 03/15/17 10:46 Dose: Not Given Calcium Acetate (Phoslo) 667 mg PO TID [facility] Last Admin: 03/15/17 14:55 Dose: 667 mg Clonazepam (Klonopin) 1 mg PO Q8 [facility] Last Admin: 03/15/17 14:55 Dose: 1 mg Epoetin David (Procrit) 10,000 unit IV TTS [facility] Last Admin: 03/14/17 10:17 Dose: 10,000 unit Escitalopram Oxalate (Lexapro) 10 mg PO DAILY [facility] Last Admin: 03/15/17 10:45 Dose: 10 mg Famotidine (Pepcid) 20 mg PO DAILY [facility] Last Admin: 03/15/17 10:46 Dose: 20 mg Ferric Sodium Gluconate Complex (Ferrlecit) 125 mg IVP TTS [facility] Stop: 03/19/17 10:01 Last Admin: 03/14/17 10:16 Dose: 125 mg Azithromycin 500 mg/ Sodium (Chloride) 250 mls @ 250 mls/hr IVPB Q24H [facility] Last Admin: 03/15/17 00:24 Dose: 250 mls/hr Piperacillin Sod/Tazobactam Sod (Zosyn 2.25 Gm Iv Premix) 2.25 gm in 50 mls @ 100 mls/hr IVPB Q8H [facility] Last Admin: 03/15/17 14:55 Dose: 100 mls/hr Insulin Aspart (Novolog) 0 unit SC ACHS [facility] PRN Reason: Protocol Last Admin: 03/15/17 12:21 Dose: 4 unit Methylprednisolone (Solu-Medrol) 40 mg IVP Q8H [facility] Last Admin: 03/15/17 14:55 Dose: 40 mg Metoprolol Tartrate (Lopressor) 25 mg PO BID [facility] Last Admin: 03/15/17 10:45 Dose: 25 mg Paricalcitol (Zemplar) 2 mcg IV TTS [facility] Last Admin: 03/14/17 10:17 Dose: 2 mcg Quetiapine Fumarate (Seroquel) 50 mg PO HS [facility] Last Admin: 03/14/17 22:25 Dose: 50 mg Vitamin B Complex/Vit C/Folic Acid (Nephro-Autumn) 1 tab PO DAILY [facility] Last Admin: 03/15/17 10:45 Dose: 1 tab - Labs Labs: 03/15/17 08:13 PT 10.4 SECONDS (9.7-12.2) 03/13/17 18:58 INR 0.9 03/13/17 18:58 APTT 34 SECONDS (21-34) 03/13/17 18:58
--- NOTE | 2017-03-15 15:29 | CP.PCM.CON ---
History of Present Illness - History of Present Illness History of Present Illness: 46-year-old -[place] male with a history of end-stage renal disease on HD status post tracheostomy couple of months back secondary to his respiratory failure was transferred from care home secondary to episode of bloody secretions from the trach site. he has been initiated on antibiotics and was seen by pulmonology for evaluation of possible bronchoscopy. IV antibiotics ordered Review of Systems - Constitutional Constitutional: As Per HPI - EENT Eyes: absent: As Per HPI, Blind Spots, Blurred Vision, Change in Vision, Decreased Night Vision, Diplopia, Discharge, Dry Eye, Exophthalmos, Floaters, Irritation, Itchy Eyes, Loss of Peripheral Vision, Pain, Photophobia, Requires Corrective Lenses, Sees Flashes, Spots in Vision, Tunnel Vision, Other Visual Disturbances, Loss of Vision, Other Nose/Mouth/Throat: As Per HPI - Cardiovascular Cardiovascular: As Per HPI. absent: Acrocyanosis, Chest Pain, Chest Pain at Rest, Chest Pain with Activity, Claudication, Diaphoresis, Dyspnea, Dyspnea on Exertion, Edema, Irregular Heart Rhythm, Pain Radiating to Arm/Neck/Jaw, Leg Edema, Leg Ulcers, Lightheadedness, Orthopnea, Palpitations, Paroxysmal Nocturnal Dyspnea, Pedal Edema, Radiating Pain, Rapid Heart Rate, Slow Heart Rate, Syncope, Other - Respiratory Respiratory: As Per HPI, Cough, Hemoptysis - Gastrointestinal Gastrointestinal: absent: As Per HPI, Abdominal Pain, Belching, Bloating, Change in Bowel Habits, Change in Stool Character, Coffee Ground Emesis, Constipation, Cramping, Diarrhea, Dyspepsia, Dysphagia, Early Satiety, Excessive Flatus, Fecal Incontinence, Heartburn, Hematemesis, Hematochezia, Loose Stools, Melena, Nausea, Odynophagia, Temesmus, Vomiting, Other - Genitourinary Genitourinary: absent: As Per HPI, Change in Urinary Stream, Difficulty Urinating, Dysuria, Flank Pain, Hematuria, Pyuria, Nocturia, Urinary Incontinence, Urinary Frequency, Urinary Hesitance, Urinary Urgency, Voiding Freq/Small Amts, Freq UTI, Hx Renal/Bladder Calculi, Hx /Renal Surgery, Bladder Distension, Other - Musculoskeletal Musculoskeletal: absent: As Per HPI, Abnormal Gait, Arthralgias, Atrophy, Back Pain, Deformity, Joint Swelling, Limited Range of Motion, Loss of Height, Muscle Cramps, Muscle Weakness, Myalgias, Neck Pain, Numbness, Radiating Pain into Limb, Stiffness, Tingling, Other - Integumentary Integumentary: absent: As Per HPI, Acne, Alopecia, Bleeding Lesions, Change in Hair, Change in Nails, Change in Pigmentation, Changing Lesions, Dry Skin, Erythema, Furuncle, Hirsutism, Lesions, New Lesions, Non-Healing Lesions, Photosensitivity, Pruritus, Rash, Skin Pain, Skin Ulcer, Sores, Striae, Swelling , Unusual Bruising, Wounds, Jaundice, Other - Neurological Neurological: absent: As Per HPI, Abnormal Gait, Abnormal Hearing, Abnormal Movements, Abnormal Speech, Behavioral Changes, Burning Sensations, Confusion, Convulsions, Disequilibrium, Dizziness, Numbness, Focal Weakness, Frequent Falls , Headaches, Lack of Coordination, Loss of Vision, Memory Loss, Paresthesias, Radicular Pain, Restless Legs, Sensory Deficit, Syncope, Tingling, Tremor, Vertigo, Weakness, Other Visual Disturbances, Other - Psychiatric Psychiatric: absent: As Per HPI, Abnormal Sleep Pattern, Anhedonia, Anxiety, Auditory Hallucinations, Behavioral Changes, Change in Appetite, Change in Libido, Confusion, Depression, Difficulty Concentrating, Hallucinations, Homicidal Ideation, Hopelessness, Irritability, Memory Loss, Mood Swings, Panic Attacks, Paranoia, Suicidal Ideation, Visual Hallucinations, Tactile Hallucinations, Other - Endocrine Endocrine: absent: As Per HPI, Change in Body Appearance, Change in Libido, Cold Intolorance, Deepening of Voice, Excessive Sweating, Fatigue, Flushing, Heat Intolorance, Increase in Ring/Shoe/Hat Size, Palpitations, Polydipsia, Polyphagia, Polyuria, Other - Hematologic/Lymphatic Hematologic: absent: As Per HPI, Easy Bleeding, Easy Bruising, Lymphadenopathy, Other Past Patient History - Past Medical History & Family History Past Medical History?: Yes - Past Social History Smoking Status: Never Smoked - CARDIAC Hx Hypertension: Yes - PULMONARY Hx Respiratory Disorders: Yes Other/Comment: Respiratory failure s/p trach - NEUROLOGICAL Hx Neurological Disorder: No - HEENT Hx HEENT Problems: No - RENAL Hx Chronic Kidney Disease: Yes Hx Dialysis: Yes (Tue, Thus, Sat) Type of Dialysis Access: Left upper arm AV shunt Date of Last Dialysis Treatment: 03/12/17 - ENDOCRINE/METABOLIC Hx Endocrine Disorders: Yes Hx Diabetes Mellitus Type 2: Yes - HEMATOLOGICAL/ONCOLOGICAL Hx Blood Disorders: No - INTEGUMENTARY Hx Dermatological Problems: No - MUSCULOSKELETAL/RHEUMATOLOGICAL Hx Musculoskeletal Disorders: No Hx Falls: No - GASTROINTESTINAL Hx Gastrointestinal Disorders: Yes Other/Comment: Dysphagia - GENITOURINARY/GYNECOLOGICAL Hx Genitourinary Disorders: No - PSYCHIATRIC Hx Anxiety: Yes Hx Depression: Yes Hx Substance Use: No - SURGICAL HISTORY Hx Surgeries: Yes Hx Vascular Access Device: Yes - ANESTHESIA Hx Anesthesia: Yes Hx Anesthesia Reactions: No Hx Malignant Hyperthermia: No Has any member of the family had a problem w/ anesthesia?: No Meds Allergies/Adverse Reactions: Allergies Allergy/AdvReac Type Severity Reaction Status Date / Time No Known Allergies Allergy Unverified 03/13/17 17:52 - Medications Medications: Current Medications Acetaminophen (Tylenol 325mg Tab) 650 mg PO Q4 PRN PRN Reason: Pain, moderate (4-7) Albuterol/Ipratropium (Duoneb 3 Mg/0.5 Mg (3 Ml) Ud) 3 ml INH RQ6 [facility] Last Admin: 03/15/17 13:42 Dose: 3 ml Amlodipine Besylate (Norvasc) 10 mg PO DAILY [facility] Last Admin: 03/15/17 10:45 Dose: 10 mg Amlodipine Besylate (Norvasc) 10 mg PO DAILY [facility] Last Admin: 03/15/17 10:46 Dose: Not Given Calcium Acetate (Phoslo) 667 mg PO TID [facility] Last Admin: 03/15/17 14:55 Dose: 667 mg Clonazepam (Klonopin) 1 mg PO Q8 [facility] Last Admin: 03/15/17 14:55 Dose: 1 mg Epoetin David (Procrit) 10,000 unit IV TTS [facility] Last Admin: 03/14/17 10:17 Dose: 10,000 unit Escitalopram Oxalate (Lexapro) 10 mg PO DAILY [facility] Last Admin: 03/15/17 10:45 Dose: 10 mg Famotidine (Pepcid) 20 mg PO DAILY [facility] Last Admin: 03/15/17 10:46 Dose: 20 mg Ferric Sodium Gluconate Complex (Ferrlecit) 125 mg IVP TTS [facility] Stop: 03/19/17 10:01 Last Admin: 03/14/17 10:16 Dose: 125 mg Azithromycin 500 mg/ Sodium (Chloride) 250 mls @ 250 mls/hr IVPB Q24H [facility] Last Admin: 03/15/17 00:24 Dose: 250 mls/hr Piperacillin Sod/Tazobactam Sod (Zosyn 2.25 Gm Iv Premix) 2.25 gm in 50 mls @ 100 mls/hr IVPB Q8H [facility] Last Admin: 03/15/17 14:55 Dose: 100 mls/hr Insulin Aspart (Novolog) 0 unit SC ACHS [facility] PRN Reason: Protocol Last Admin: 03/15/17 12:21 Dose: 4 unit Methylprednisolone (Solu-Medrol) 40 mg IVP Q8H [facility] Last Admin: 03/15/17 14:55 Dose: 40 mg Metoprolol Tartrate (Lopressor) 25 mg PO BID [facility] Last Admin: 03/15/17 10:45 Dose: 25 mg Paricalcitol (Zemplar) 2 mcg IV TTS [facility] Last Admin: 03/14/17 10:17 Dose: 2 mcg Quetiapine Fumarate (Seroquel) 50 mg PO HS [facility] Last Admin: 03/14/17 22:25 Dose: 50 mg Vitamin B Complex/Vit C/Folic Acid (Nephro-Autumn) 1 tab PO DAILY [facility] Last Admin: 03/15/17 10:45 Dose: 1 tab Physical Exam - Constitutional Appears: Non-toxic, No Acute Distress, Younger Than Stated Age, Chronically Ill - Head Exam Head Exam: ATRAUMATIC, NORMAL INSPECTION, NORMOCEPHALIC - Eye Exam Eye Exam: PERRL. absent: Scleral icterus Pupil Exam: NORMAL ACCOMODATION - ENT Exam ENT Exam: Mucous Membranes Dry, Normal External Ear Exam, Normal Oropharynx - Neck Exam Neck exam: Negative for: Lymphadenopathy, Thyromegaly - Respiratory Exam Respiratory Exam: Decreased Breath Sounds, Rhonchi - Cardiovascular Exam Cardiovascular Exam: REGULAR RHYTHM, +S1, +S2 - GI/Abdominal Exam GI & Abdominal Exam: Diminished Bowel Sounds, Soft. absent: Tenderness - Rectal Exam Rectal Exam: Deferred - Exam Exam: NORMAL INSPECTION - Extremities Exam Extremities exam: Positive for: pedal edema - Back Exam Back exam: absent: CVA tenderness (L), CVA tenderness (R) - Neurological Exam Neurological exam: Alert, CN II-XII Intact, Oriented x3, Reflexes Normal - Psychiatric Exam Psychiatric exam: Normal Mood - Skin Skin Exam: Dry, Intact Results - Vital Signs Recent Vital Signs: Last Vital Signs Temp 98.2 F 03/15/17 07:40 Pulse 92 H 03/15/17 07:40 Resp 20 03/15/17 07:40 BP 175/90 H 03/15/17 10:45 Pulse Ox 96 03/15/17 07:40 - Labs Result Diagrams: 03/15/17 08:13 03/13/17 18:58 Labs: Laboratory Results - last 24 hr 03/14/17 03/14/17 03/15/17 16:39 21:23 07:14 WBC RBC Hgb Hct MCV MCH MCHC RDW Plt Count MPV POC Glucose (mg/dL) 328 H 339 H 260 H Phosphorus Albumin Procalcitonin 03/15/17 03/15/17 03/15/17 08:13 08:13 08:13 WBC 13.6 H D RBC 3.13 L Hgb 9.6 L Hct 29.2 L MCV 93.1 MCH 30.5 MCHC 32.7 L RDW 18.2 H Plt Count 174 MPV 9.2 POC Glucose (mg/dL) Phosphorus 3.4 Albumin 2.9 L Procalcitonin 0.64 H 03/15/17 11:26 WBC RBC Hgb Hct MCV MCH MCHC RDW Plt Count MPV POC Glucose (mg/dL) 300 H Phosphorus Albumin Procalcitonin Assessment & Plan (1) Acute renal insufficiency Status: Acute (2) Anemia Status: Acute (3) CHF (congestive heart failure) Status: Acute (4) Dehydration Status: Acute (5) ESRD (end stage renal disease) on dialysis Status: Acute (6) HTN (hypertension) Status: Acute (7) Hyponatremia Status: Acute (8) Pneumonia Status: Acute (9) SOB (shortness of breath) Status: Acute - Assessment and Plan (Free Text) Assessment: await cultures cont iv antibiotics will discuss with dr Zamudio
--- NOTE | 2017-03-16 00:40 | CON ---
DATE: 03/15/2017 RENAL CONSULTATION LOCATION: Room 364, bed A. REQUESTED BY: Dr. Dario Renteria. REASON FOR CONSULTATION: End-stage renal disease, continuation of hemodialysis. HISTORY OF PRESENT ILLNESS: The patient is a 46-year-old middle-aged male with history of diabetes, hypertension, respiratory failure status post tracheostomy and end-stage renal disease, on hemodialysis, three times a week, was admitted with chief complaints of blood-tinged sputum from the trach. Denies any chest pain or palpitation. Denies any fever or cough. No abdominal pain. No nausea, vomiting or diarrhea. No edema of the legs. The patient is feeling better, not in acute distress. PHYSICAL EXAMINATION: GENERAL: The patient is a 46-year-old middle-aged male, moderately built, moderately nourished, not in acute distress. VITAL SIGNS: Blood pressure 164/87, pulse 85, respiration 20, temperature 98.4, saturations 97%. Height 5 feet 8 inches and the weight is 148 pounds. HEENT: Pupils normal, reactive to light and accommodation. Conjunctivae pink. Sclerae anicteric. Tongue is moist. Trachea is midline. LUNGS: Symmetric on both sides. Bilateral breath sounds present. Clear on auscultation. The patient has a tracheostomy. CVS: S1 and S2 audible. No murmur or gallop. ABDOMEN: Normal in appearance. Soft and tympanic. No guarding. No hepatosplenomegaly. HELICOPTER SPECIALIST: The patient is alert, awake and oriented x3. Nonfocal on examination. Cranial nerves II through XII grossly intact. Sensory and motor examination within normal limits. EXTREMITIES: No cyanosis. No clubbing. No edema. LABORATORY DATA: As of 03/15/2017 include WBC 13.6, hemoglobin 9.6, hematocrit is 29.2, platelets 174. Albumin 2.9, phosphorus is 3.4. Procalcitonin is 0.64. CURRENT MEDICATIONS: Include as follows: Azithromycin 500 mg daily, DuoNeb inhaler q. 6 hours, Ferrlecit 125 mg 3 times a week, Klonopin 1 mg p.o. q. 8 hours, Lexapro 10 mg p.o. daily, Lopressor 25 mg p.o. b.i.d., Nephro-Autumn 1 tablet daily, Norvasc 10 mg daily, NovoLog per sliding scale, Pepcid 20 mg p.o. daily, PhosLo 667 mg p.o. t.i.d., Procrit 10,000 units 3 times a week, Seroquel 50 mg p.o. at bedtime, Solu-Medrol 40 mg IV q. 8 hours, Tylenol, Zemplar 2 mcg three times a week and Zosyn 2.25 g IV q. 8 hours. ASSESSMENT AND PLAN: In summary, the patient is a 46-year-old middle-aged male with history of hypertension, diabetes for 10 years, end-stage renal disease, anxiety, depression, respiratory failure, status post tracheostomy, who was recently admitted to [facility], started hemodialysis in [facility] on 03/07/2017, was sent to [facility] ER for evaluation of blood-tinged sputum from the tracheostomy. The patient was found to have a right lower lobe infiltrate and started on IV antibiotics. 1. End-stage renal disease, continue hemodialysis three times a week Thursday, and Thursday. 2. Anemia secondary to renal failure. Continue Epogen 3 times a week Thursday, and Thursday and also continue Nephrocaps, status post transfusion of 3 units of packed RBC and his current H and H is 9.6/29.2. 3. Hypertension, blood pressure is stable. Continue his current medications Norvasc and Lopressor. 4. Depression. Continue his Seroquel and Klonopin. 5. Status post tracheostomy. 6. Pneumonia. Continue his current medications of Zithromax, Zosyn, DuoNeb inhaler and Solu-Medrol. Follow with pulmonary. Thank you for allowing me to participate in your patient's care. Kalie Hayward MD MTDD
[2017-03-16] MEDS: Albuterol-Ipratrop 3 mg / 0.5 (3 ml) UD INH SCH ×4 (01:31→19:10)
[2017-03-16] MEDS ORDERED: (Novolog) Insulin Aspart, Recombinant 100 u/ml 10 ml vial SC ONE (01:47)
[2017-03-16] MEDS: Piperacill/Tazo 2.25gm in Dex 2.25 GM/50 ML BAG IVPB SCH ×3 (06:01→21:17)
[2017-03-16] MEDS: MethylPREDNISolone 40 mg Vial IVP SCH ×3 (06:27→22:57)
[2017-03-16] MEDS: (Novolog) Insulin Aspart, Recombinant 100 u/ml 10 ml vial SC SCH ×5 (08:23→21:25)
[2017-03-16] MEDS: Multivitamin Vitamin B Complex (Nephro-Vite) Tab PO SCH (11:16)
--- NOTE | 2017-03-16 11:30 | CP.PCM.PN ---
Subjective - Date & Time of Evaluation Date of Evaluation: 03/16/17 Time of Evaluation: 08:00 - Subjective Subjective: await sputum c/s cont rx Objective - Vital Signs/Intake and Output Vital Signs (last 24 hours): Temp Pulse Resp BP Pulse Ox 98.2 F 84 20 155/83 H 96 03/16/17 07:28 03/16/17 07:28 03/16/17 07:28 03/16/17 11:15 03/16/17 07:28 Intake and Output: 03/16/17 03/16/17 06:59 18:59 Intake Total 540 Balance 540 - Medications Medications: Current Medications Acetaminophen (Tylenol 325mg Tab) 650 mg PO Q4 PRN PRN Reason: Pain, moderate (4-7) Albuterol/Ipratropium (Duoneb 3 Mg/0.5 Mg (3 Ml) Ud) 3 ml INH RQ6 [facility] Last Admin: 03/16/17 07:31 Dose: 3 ml Amlodipine Besylate (Norvasc) 10 mg PO DAILY [facility] Last Admin: 03/16/17 11:19 Dose: 10 mg Amlodipine Besylate (Norvasc) 10 mg PO DAILY [facility] Last Admin: 03/16/17 11:19 Dose: 10 mg Calcium Acetate (Phoslo) 667 mg PO TID [facility] Last Admin: 03/16/17 11:14 Dose: 667 mg Clonazepam (Klonopin) 1 mg PO Q8 [facility] Last Admin: 03/16/17 06:00 Dose: 1 mg Epoetin David (Procrit) 10,000 unit IV TTS [facility] Last Admin: 03/14/17 10:17 Dose: 10,000 unit Escitalopram Oxalate (Lexapro) 10 mg PO DAILY [facility] Last Admin: 03/16/17 11:15 Dose: 10 mg Famotidine (Pepcid) 20 mg PO DAILY [facility] Last Admin: 03/16/17 11:14 Dose: 20 mg Ferric Sodium Gluconate Complex (Ferrlecit) 125 mg IVP TTS [facility] Stop: 03/19/17 10:01 Last Admin: 03/14/17 10:16 Dose: 125 mg Azithromycin 500 mg/ Sodium (Chloride) 250 mls @ 250 mls/hr IVPB Q24H [facility] Last Admin: 03/15/17 22:45 Dose: 250 mls/hr Piperacillin Sod/Tazobactam Sod (Zosyn 2.25 Gm Iv Premix) 2.25 gm in 50 mls @ 100 mls/hr IVPB Q8H [facility] Last Admin: 03/16/17 06:01 Dose: 100 mls/hr Insulin Aspart (Novolog) 0 unit SC ACHS [facility] PRN Reason: Protocol Last Admin: 03/16/17 08:23 Dose: 10 unit Methylprednisolone (Solu-Medrol) 40 mg IVP Q8H [facility] Last Admin: 03/16/17 06:27 Dose: 40 mg Metoprolol Tartrate (Lopressor) 25 mg PO BID [facility] Last Admin: 03/16/17 11:15 Dose: 25 mg Paricalcitol (Zemplar) 2 mcg IV TTS [facility] Last Admin: 03/14/17 10:17 Dose: 2 mcg Quetiapine Fumarate (Seroquel) 50 mg PO HS [facility] Last Admin: 03/15/17 21:34 Dose: 50 mg Vitamin B Complex/Vit C/Folic Acid (Nephro-Autumn) 1 tab PO DAILY [facility] Last Admin: 03/16/17 11:16 Dose: 1 tab - Labs Labs: 03/15/17 08:13 PT 10.4 SECONDS (9.7-12.2) 03/13/17 18:58 INR 0.9 03/13/17 18:58 APTT 34 SECONDS (21-34) 03/13/17 18:58 - Constitutional Appears: Older Than Stated Age, Cachectic - Head Exam Head Exam: NORMOCEPHALIC - Eye Exam Eye Exam: PERRL. absent: Scleral icterus - ENT Exam ENT Exam: Mucous Membranes Dry - Neck Exam Neck Exam: absent: Lymphadenopathy - Respiratory Exam Respiratory Exam: Decreased Breath Sounds, Rhonchi - Cardiovascular Exam Cardiovascular Exam: REGULAR RHYTHM - GI/Abdominal Exam GI & Abdominal Exam: Distended Assessment and Plan (1) Acute renal insufficiency Status: Acute (2) Anemia Status: Acute (3) CHF (congestive heart failure) Status: Acute (4) Dehydration Status: Acute (5) ESRD (end stage renal disease) on dialysis Status: Acute (6) HTN (hypertension) Status: Acute (7) Hyponatremia Status: Acute (8) Pneumonia Status: Acute (9) SOB (shortness of breath) Status: Acute
--- NOTE | 2017-03-16 12:36 | CP.PCM.PN ---
Subjective - Date & Time of Evaluation Date of Evaluation: 03/16/17 Time of Evaluation: 10:00 - Subjective Subjective: patient seen and examined. Lying comfortably in no acute distress Denies shortness of breath No further blood-tinged secretions from trach Afebrile Objective - Vital Signs/Intake and Output Vital Signs (last 24 hours): Temp Pulse Resp BP Pulse Ox 98.2 F 84 20 155/83 H 96 03/16/17 07:28 03/16/17 07:28 03/16/17 07:28 03/16/17 11:15 03/16/17 07:28 Intake and Output: 03/16/17 03/16/17 06:59 18:59 Intake Total 540 Balance 540 - Medications Medications: Current Medications Acetaminophen (Tylenol 325mg Tab) 650 mg PO Q4 PRN PRN Reason: Pain, moderate (4-7) Albuterol/Ipratropium (Duoneb 3 Mg/0.5 Mg (3 Ml) Ud) 3 ml INH RQ6 [facility] Last Admin: 03/16/17 07:31 Dose: 3 ml Amlodipine Besylate (Norvasc) 10 mg PO DAILY [facility] Last Admin: 03/16/17 11:19 Dose: 10 mg Amlodipine Besylate (Norvasc) 10 mg PO DAILY [facility] Last Admin: 03/16/17 11:19 Dose: 10 mg Calcium Acetate (Phoslo) 667 mg PO TID [facility] Last Admin: 03/16/17 11:14 Dose: 667 mg Clonazepam (Klonopin) 1 mg PO Q8 [facility] Last Admin: 03/16/17 06:00 Dose: 1 mg Epoetin David (Procrit) 10,000 unit IV TTS [facility] Last Admin: 03/14/17 10:17 Dose: 10,000 unit Escitalopram Oxalate (Lexapro) 10 mg PO DAILY [facility] Last Admin: 03/16/17 11:15 Dose: 10 mg Famotidine (Pepcid) 20 mg PO DAILY [facility] Last Admin: 03/16/17 11:14 Dose: 20 mg Ferric Sodium Gluconate Complex (Ferrlecit) 125 mg IVP TTS [facility] Stop: 03/19/17 10:01 Last Admin: 03/14/17 10:16 Dose: 125 mg Azithromycin 500 mg/ Sodium (Chloride) 250 mls @ 250 mls/hr IVPB Q24H [facility] Last Admin: 03/15/17 22:45 Dose: 250 mls/hr Piperacillin Sod/Tazobactam Sod (Zosyn 2.25 Gm Iv Premix) 2.25 gm in 50 mls @ 100 mls/hr IVPB Q8H [facility] Last Admin: 03/16/17 06:01 Dose: 100 mls/hr Insulin Aspart (Novolog) 0 unit SC ACHS [facility] PRN Reason: Protocol Last Admin: 03/16/17 12:15 Dose: 10 unit Methylprednisolone (Solu-Medrol) 40 mg IVP Q8H [facility] Last Admin: 03/16/17 06:27 Dose: 40 mg Metoprolol Tartrate (Lopressor) 25 mg PO BID [facility] Last Admin: 03/16/17 11:15 Dose: 25 mg Paricalcitol (Zemplar) 2 mcg IV TTS [facility] Last Admin: 03/14/17 10:17 Dose: 2 mcg Quetiapine Fumarate (Seroquel) 50 mg PO HS [facility] Last Admin: 03/15/17 21:34 Dose: 50 mg Vitamin B Complex/Vit C/Folic Acid (Nephro-Autumn) 1 tab PO DAILY [facility] Last Admin: 03/16/17 11:16 Dose: 1 tab - Labs Labs: 03/15/17 08:13 PT 10.4 SECONDS (9.7-12.2) 03/13/17 18:58 INR 0.9 03/13/17 18:58 APTT 34 SECONDS (21-34) 03/13/17 18:58 - Head Exam Head Exam: ATRAUMATIC, NORMOCEPHALIC - Eye Exam Eye Exam: Normal appearance - ENT Exam ENT Exam: Mucous Membranes Moist - Respiratory Exam Respiratory Exam: Rales - Cardiovascular Exam Cardiovascular Exam: REGULAR RHYTHM - GI/Abdominal Exam GI & Abdominal Exam: Soft, Normal Bowel Sounds Assessment and Plan (1) Pneumonia Assessment & Plan: continue antibiotics Slightly elevated pro calcitonin level Continue steroids and nebulizer treatment Status: Acute (2) ESRD (end stage renal disease) on dialysis Status: Acute (3) Anemia Status: Acute
--- NOTE | 2017-03-16 17:28 | CP.PCM.PN ---
Subjective - Date & Time of Evaluation Date of Evaluation: 03/16/17 Time of Evaluation: 09:20 - Subjective Subjective: clinically same Objective - Vital Signs/Intake and Output Vital Signs (last 24 hours): Temp Pulse Resp BP Pulse Ox 98.0 F 81 20 149/78 97 03/16/17 16:52 03/16/17 16:52 03/16/17 16:52 03/16/17 16:52 03/16/17 16:52 Intake and Output: 03/16/17 03/16/17 06:59 18:59 Intake Total 540 Balance 540 - Medications Medications: Current Medications Acetaminophen (Tylenol 325mg Tab) 650 mg PO Q4 PRN PRN Reason: Pain, moderate (4-7) Albuterol/Ipratropium (Duoneb 3 Mg/0.5 Mg (3 Ml) Ud) 3 ml INH RQ6 [facility] Last Admin: 03/16/17 13:27 Dose: 3 ml Amlodipine Besylate (Norvasc) 10 mg PO DAILY [facility] Last Admin: 03/16/17 11:19 Dose: 10 mg Amlodipine Besylate (Norvasc) 10 mg PO DAILY [facility] Last Admin: 03/16/17 11:19 Dose: 10 mg Calcium Acetate (Phoslo) 667 mg PO TID [facility] Last Admin: 03/16/17 14:43 Dose: 667 mg Clonazepam (Klonopin) 1 mg PO Q8 [facility] Last Admin: 03/16/17 14:43 Dose: 1 mg Epoetin David (Procrit) 10,000 unit IV TTS [facility] Last Admin: 03/14/17 10:17 Dose: 10,000 unit Escitalopram Oxalate (Lexapro) 10 mg PO DAILY [facility] Last Admin: 03/16/17 11:15 Dose: 10 mg Famotidine (Pepcid) 20 mg PO DAILY [facility] Last Admin: 03/16/17 11:14 Dose: 20 mg Ferric Sodium Gluconate Complex (Ferrlecit) 125 mg IVP TTS [facility] Stop: 03/19/17 10:01 Last Admin: 03/14/17 10:16 Dose: 125 mg Azithromycin 500 mg/ Sodium (Chloride) 250 mls @ 250 mls/hr IVPB Q24H [facility] Last Admin: 03/15/17 22:45 Dose: 250 mls/hr Piperacillin Sod/Tazobactam Sod (Zosyn 2.25 Gm Iv Premix) 2.25 gm in 50 mls @ 100 mls/hr IVPB Q8H [facility] Last Admin: 03/16/17 14:34 Dose: 100 mls/hr Insulin Aspart (Novolog) 0 unit SC ACHS [facility] PRN Reason: Protocol Last Admin: 03/16/17 12:15 Dose: 10 unit Methylprednisolone (Solu-Medrol) 40 mg IVP Q8H [facility] Last Admin: 03/16/17 14:43 Dose: 40 mg Metoprolol Tartrate (Lopressor) 25 mg PO BID [facility] Last Admin: 03/16/17 11:15 Dose: 25 mg Paricalcitol (Zemplar) 2 mcg IV TTS [facility] Last Admin: 03/14/17 10:17 Dose: 2 mcg Quetiapine Fumarate (Seroquel) 50 mg PO HS [facility] Last Admin: 03/15/17 21:34 Dose: 50 mg Vitamin B Complex/Vit C/Folic Acid (Nephro-Autumn) 1 tab PO DAILY [facility] Last Admin: 03/16/17 11:16 Dose: 1 tab - Labs Labs: 03/15/17 08:13 PT 10.4 SECONDS (9.7-12.2) 03/13/17 18:58 INR 0.9 03/13/17 18:58 APTT 34 SECONDS (21-34) 03/13/17 18:58 - Constitutional Appears: Well - Head Exam Head Exam: ATRAUMATIC, NORMAL INSPECTION, NORMOCEPHALIC - Eye Exam Eye Exam: EOMI, Normal appearance, PERRL Pupil Exam: NORMAL ACCOMODATION, PERRL - ENT Exam ENT Exam: Mucous Membranes Moist, Normal Exam - Neck Exam Neck Exam: Full ROM, Normal Inspection. absent: Lymphadenopathy - Respiratory Exam Respiratory Exam: Decreased Breath Sounds - Cardiovascular Exam Cardiovascular Exam: REGULAR RHYTHM, +S1, +S2. absent: Murmur - GI/Abdominal Exam GI & Abdominal Exam: Diminished Bowel Sounds - Rectal Exam Rectal Exam: Deferred Assessment and Plan (1) Acute renal insufficiency Status: Acute (2) Anemia Status: Acute (3) CHF (congestive heart failure) Status: Acute (4) Dehydration Status: Acute (5) ESRD (end stage renal disease) on dialysis Status: Acute (6) HTN (hypertension) Status: Acute (7) Hyponatremia Status: Acute (8) Pneumonia Status: Acute (9) SOB (shortness of breath) Status: Acute - Assessment and Plan (Free Text) Plan: Feeling better Shortness of breath improving No bloody secretions from tracheostomy Pending echo IV Zosyn Azithromycin Solu-Medrol Blood sugar control Insulin DuoNeb Breathing exercises
--- NOTE | 2017-03-16 19:43 | CP.PCM.PN ---
Subjective - Date & Time of Evaluation Date of Evaluation: 03/16/17 Time of Evaluation: 19:42 - Subjective Subjective: pt seen and examined, follow up consult is dictated #[id number] Objective - Vital Signs/Intake and Output Vital Signs (last 24 hours): Temp Pulse Resp BP Pulse Ox 98.0 F 81 20 149/78 97 03/16/17 16:52 03/16/17 16:52 03/16/17 16:52 03/16/17 17:35 03/16/17 16:52 Intake and Output: 03/16/17 03/17/17 18:59 06:59 Intake Total 540 Balance 540 - Medications Medications: Current Medications Acetaminophen (Tylenol 325mg Tab) 650 mg PO Q4 PRN PRN Reason: Pain, moderate (4-7) Albuterol/Ipratropium (Duoneb 3 Mg/0.5 Mg (3 Ml) Ud) 3 ml INH RQ6 [facility] Last Admin: 03/16/17 19:10 Dose: 3 ml Amlodipine Besylate (Norvasc) 10 mg PO DAILY [facility] Last Admin: 03/16/17 11:19 Dose: 10 mg Amlodipine Besylate (Norvasc) 10 mg PO DAILY [facility] Last Admin: 03/16/17 11:19 Dose: 10 mg Calcium Acetate (Phoslo) 667 mg PO TID [facility] Last Admin: 03/16/17 17:36 Dose: 667 mg Clonazepam (Klonopin) 1 mg PO Q8 [facility] Last Admin: 03/16/17 14:43 Dose: 1 mg Epoetin David (Procrit) 10,000 unit IV TTS [facility] Last Admin: 03/14/17 10:17 Dose: 10,000 unit Escitalopram Oxalate (Lexapro) 10 mg PO DAILY [facility] Last Admin: 03/16/17 11:15 Dose: 10 mg Famotidine (Pepcid) 20 mg PO DAILY [facility] Last Admin: 03/16/17 11:14 Dose: 20 mg Ferric Sodium Gluconate Complex (Ferrlecit) 125 mg IVP TTS [facility] Stop: 03/19/17 10:01 Last Admin: 03/14/17 10:16 Dose: 125 mg Azithromycin 500 mg/ Sodium (Chloride) 250 mls @ 250 mls/hr IVPB Q24H [facility] Last Admin: 03/15/17 22:45 Dose: 250 mls/hr Piperacillin Sod/Tazobactam Sod (Zosyn 2.25 Gm Iv Premix) 2.25 gm in 50 mls @ 100 mls/hr IVPB Q8H [facility] Last Admin: 03/16/17 14:34 Dose: 100 mls/hr Insulin Aspart (Novolog) 0 unit SC ACHS [facility] PRN Reason: Protocol Last Admin: 03/16/17 16:30 Dose: 8 unit Methylprednisolone (Solu-Medrol) 40 mg IVP Q8H [facility] Last Admin: 03/16/17 14:43 Dose: 40 mg Metoprolol Tartrate (Lopressor) 25 mg PO BID [facility] Last Admin: 03/16/17 17:35 Dose: 25 mg Paricalcitol (Zemplar) 2 mcg IV TTS [facility] Last Admin: 03/14/17 10:17 Dose: 2 mcg Quetiapine Fumarate (Seroquel) 50 mg PO HS [facility] Last Admin: 03/15/17 21:34 Dose: 50 mg Vitamin B Complex/Vit C/Folic Acid (Nephro-Autumn) 1 tab PO DAILY [facility] Last Admin: 03/16/17 11:16 Dose: 1 tab - Labs Labs: 03/15/17 08:13 PT 10.4 SECONDS (9.7-12.2) 03/13/17 18:58 INR 0.9 03/13/17 18:58 APTT 34 SECONDS (21-34) 03/13/17 18:58
--- NOTE | 2017-03-16 22:26 | CP.PCM.PN ---
Subjective - Date & Time of Evaluation Date of Evaluation: 03/16/17 Time of Evaluation: 14:00 - Subjective Subjective: feeling fine SOB improving no more blood tinged secretions from tracheostomy site Objective - Vital Signs/Intake and Output Vital Signs (last 24 hours): Temp Pulse Resp BP Pulse Ox 98.0 F 81 20 149/78 97 03/16/17 16:52 03/16/17 16:52 03/16/17 16:52 03/16/17 17:35 03/16/17 16:52 Intake and Output: 03/16/17 03/17/17 18:59 06:59 Intake Total 540 Balance 540 - Medications Medications: Current Medications Acetaminophen (Tylenol 325mg Tab) 650 mg PO Q4 PRN PRN Reason: Pain, moderate (4-7) Albuterol/Ipratropium (Duoneb 3 Mg/0.5 Mg (3 Ml) Ud) 3 ml INH RQ6 [facility] Last Admin: 03/16/17 19:10 Dose: 3 ml Amlodipine Besylate (Norvasc) 10 mg PO DAILY [facility] Last Admin: 03/16/17 11:19 Dose: 10 mg Amlodipine Besylate (Norvasc) 10 mg PO DAILY [facility] Last Admin: 03/16/17 11:19 Dose: 10 mg Calcium Acetate (Phoslo) 667 mg PO TID [facility] Last Admin: 03/16/17 17:36 Dose: 667 mg Clonazepam (Klonopin) 1 mg PO Q8 [facility] Last Admin: 03/16/17 21:17 Dose: 1 mg Epoetin David (Procrit) 10,000 unit IV TTS [facility] Last Admin: 03/14/17 10:17 Dose: 10,000 unit Escitalopram Oxalate (Lexapro) 10 mg PO DAILY [facility] Last Admin: 03/16/17 11:15 Dose: 10 mg Famotidine (Pepcid) 20 mg PO DAILY [facility] Last Admin: 03/16/17 11:14 Dose: 20 mg Ferric Sodium Gluconate Complex (Ferrlecit) 125 mg IVP TTS [facility] Stop: 03/19/17 10:01 Last Admin: 03/14/17 10:16 Dose: 125 mg Azithromycin 500 mg/ Sodium (Chloride) 250 mls @ 250 mls/hr IVPB Q24H [facility] Last Admin: 03/15/17 22:45 Dose: 250 mls/hr Piperacillin Sod/Tazobactam Sod (Zosyn 2.25 Gm Iv Premix) 2.25 gm in 50 mls @ 100 mls/hr IVPB Q8H [facility] Last Admin: 03/16/17 21:17 Dose: 100 mls/hr Insulin Aspart (Novolog) 0 unit SC ACHS [facility] PRN Reason: Protocol Last Admin: 03/16/17 21:25 Dose: 2 unit Methylprednisolone (Solu-Medrol) 40 mg IVP Q8H [facility] Last Admin: 03/16/17 14:43 Dose: 40 mg Metoprolol Tartrate (Lopressor) 25 mg PO BID [facility] Last Admin: 03/16/17 17:35 Dose: 25 mg Paricalcitol (Zemplar) 2 mcg IV TTS [facility] Last Admin: 03/14/17 10:17 Dose: 2 mcg Quetiapine Fumarate (Seroquel) 50 mg PO HS [facility] Last Admin: 03/16/17 21:17 Dose: 50 mg Vitamin B Complex/Vit C/Folic Acid (Nephro-Autumn) 1 tab PO DAILY [facility] Last Admin: 03/16/17 11:16 Dose: 1 tab - Labs Labs: 03/15/17 08:13 PT 10.4 SECONDS (9.7-12.2) 03/13/17 18:58 INR 0.9 03/13/17 18:58 APTT 34 SECONDS (21-34) 03/13/17 18:58 - Constitutional Appears: Well - Head Exam Head Exam: ATRAUMATIC, NORMAL INSPECTION, NORMOCEPHALIC - Eye Exam Eye Exam: EOMI, Normal appearance, PERRL Pupil Exam: NORMAL ACCOMODATION, PERRL - ENT Exam ENT Exam: Mucous Membranes Moist, Normal Exam - Neck Exam Neck Exam: Full ROM (tracheostomy site - clear ), Normal Inspection. absent: Lymphadenopathy - Respiratory Exam Respiratory Exam: Decreased Breath Sounds, Rales - Cardiovascular Exam Cardiovascular Exam: REGULAR RHYTHM, +S1, +S2, Murmur - GI/Abdominal Exam GI & Abdominal Exam: Soft, Normal Bowel Sounds. absent: Tenderness - Rectal Exam Rectal Exam: Deferred - Neurological Exam Neurological Exam: Alert, Awake, CN II-XII Intact, Normal Gait, Oriented x3 - Psychiatric Exam Psychiatric exam: Normal Affect, Normal Mood Assessment and Plan (1) SOB (shortness of breath) Assessment & Plan: etiology secondary to pneumonia echo pending to assess pulmonary artery pressures cont ABx rx per primary team Status: Acute (2) HTN (hypertension) Assessment & Plan: bp stable cont with norvasc and metoprolol Status: Acute (3) CHF (congestive heart failure) Assessment & Plan: Diastolic echo pending for further titration of medications Status: Acute
[2017-03-16] MEDS: Azithromycin 500 MG in Sodium Chloride 0.9% 250 ML IVPB SCH (23:45)
[2017-03-17] MEDS: Albuterol-Ipratrop 3 mg / 0.5 (3 ml) UD INH SCH ×3 (01:52→13:41)
--- NOTE | 2017-03-17 02:24 | CON ---
DATE: 03/16/2017 LOCATION: 364, bed A. REQUESTED BY: Dr. Dario Renteria. REASON FOR FOLLOWUP: End-stage renal disease, continuation of the hemodialysis. HISTORY OF PRESENT ILLNESS: The patient is a 46-year-old male with past medical history significant for longstanding diabetes, hypertension, end-stage renal disease, respiratory failure, status post tracheostomy, was admitted from the alf with a chief complaint of bloody secretions from the tracheostomy cannula. The patient was found to have right lower lobe infiltrate and started on IV antibiotics Zosyn and Zithromax. The patient is feeling better, still blood-tinged secretions present today. Denies any chest pain, palpitation, Denies any fever, cough. No abdominal pain. No nausea, vomiting, or diarrhea. The patient claims he is feeling slightly better. PAST MEDICAL HISTORY: Text. CURRENT MEDICATIONS: Include azithromycin 500 mg IV piggyback daily and DuoNeb inhaler q.6 hours , Klonopin 1mg p.o. q.8 hours, Lexapro 10 mg p.o. daily , Lopressor 25 mg p.o. b.i.d., and Nephro-Autumn 1 tablet daily, Norvasc 10 mg daily, Novolog per sliding scale, Pepcid 20 mg p.o. daily, PhosLo 667 mg p.o. t.i.d., Procrit 10,000 units 3 times a week. She was started on Seroquel 50 mg p.o. at bedtime, Solu-Medrol 40 mg IV q.8 hours, and Tylenol 3 of 650 mg p.o. q.4 hours p.r.n., and Zemplar 2 mcg 3 times a week Thursday, , and Thursday, and Zosyn 2.25 g IV q.8 hours. PHYSICAL EXAMINATION GENERAL: The patient is a 46-year-old middle-aged male, moderately built, moderately nourished, not in acute distress. VITAL SIGNS: His vital signs are as follows, blood pressure 149/78, pulse 81, respirations 20, temperature 98, saturation 97%. Height 5 feet 8 inches and weight is 148 pounds. HEENT: Pupils are equal, reactive to light and accommodation. Conjunctivae pink. Sclerae anicteric. Tongue is moist. Trachea is midline. CVS: S1 and S2 audible. No murmur, no gallop. LUNGS: Symmetric on both sides. No crackles. The patient h as a tracheostomy. ABDOMEN: Normal in appearance, soft. There is no guarding, no rigidity, no hepatosplenomegaly. EXTREMITIES: No cyanosis, no clubbing, no edema. MATERIAL LIAISON: The patient is alert, awake, and oriented x3, nonfocal. Neuro examination, cranial nerves II through XII grossly intact. Sensory and motor system is within normal limits. LABORATORY DATA: No new labs are available. Accu-Chek 463, 384, 326, and 346. Blood culture x2 negative day #3 and sputum culture positive for gram-negative rods 2 types. Identification is pending. ASSESSMENT: In summary, the patient is a 46-year-old middle-aged male with a history of longstanding diabetes, hypertension, respiratory failure, end-stage renal disease, anxiety, depression, was admitted with blood-tinged secretions from the tracheostomy cannula and found to have gram-negative rods type 2, awaiting for the identification. 1. End-stage renal disease, continue hemodialysis 3 times a week Thursday, , Thursday. 2. Anemia secondary to renal failure, status post transfusion of 2 units packed RBC on admission. H and H is stable. Continue Nephrocaps. Continue Fioricet and continue Epogen 3 times a week. 3. Right lower lobe pneumonia, continue antibiotics Zosyn and Zithromax and Solu-Medrol as per ID. 4. Depression. Continue Seroquel and Lexapro. We will follow with you. Thank you for allowing me to participate in your patient's care. Repeat CBC, BMP, albumin, phosphorus, and PTH intact level. We will follow with you. Kalie Hayward MD [facility]
[2017-03-17] MEDS: Piperacill/Tazo 2.25gm in Dex 2.25 GM/50 ML BAG IVPB SCH ×2 (05:15→15:02)
[2017-03-17] MEDS: MethylPREDNISolone 40 mg Vial IVP SCH ×2 (06:20→15:02)
[2017-03-17] MEDS: (Novolog) Insulin Aspart, Recombinant 100 u/ml 10 ml vial SC SCH ×3 (08:28→17:41)
[2017-03-17] MEDS: Multivitamin Vitamin B Complex (Nephro-Vite) Tab PO SCH (09:20)
[2017-03-17 09:58] LABS: BASO # 0.1 K/uL (0.0-0.2); BASO % 0.6 % (0.0-2.0); HEMATOCRIT 28.4 % (35.0-51.0); LYMPH # 0.6 K/uL (1.0-4.3); MEAN CELL VOLUME 93.5 fL (80.0-94.0); MEAN CORPUSCULAR HEMOGLOBIN 30.8 pg (27.0-31.0); MEAN PLATELET VOLUME 8.1 fL (7.2-11.7); MONO # 0.2 K/uL (0.0-0.8); MONO % 1.6 % (0.0-10.0); NRBC % 0.1 % (0.0-2.0); PLATELET COUNT 208 K/uL (130-400); WHITE BLOOD COUNT 13.1 K/uL (4.8-10.8)
[2017-03-17 10:05] LABS: POTASSIUM 4.4 mmol/L (3.6-5.2)
[2017-03-17 10:07] LABS: ALB/GLOB RATIO 1.1 (1.0-2.1); BILIRUBIN,TOTAL 0.4 mg/dL (0.2-1.3); TOTAL PROTEIN 5.5 g/dL (6.3-8.3)
[2017-03-17 10:08] LABS: CALCIUM 7.6 mg/dl (8.6-10.4)
[2017-03-17 10:29] LABS: NEUTROPHIL 94 % (50-75); TOTAL CELLS COUNTED 100
[2017-03-17] MEDS: Paricalcitol 2 mcg/ml Inj IV SCH (12:12)
[2017-03-17] MEDS: Ferric Sodium Gluconat Complex 62.5 mg/5 ml Vial IVP SCH (12:13)
[2017-03-17] MEDS: Epoetin Alfa 10,000 unit/ml Dialysis IV SCH (12:13)
--- NOTE | 2017-03-17 12:30 | CP.PCM.PN ---
Subjective - Date & Time of Evaluation Date of Evaluation: 03/17/17 Time of Evaluation: 12:29 - Subjective Subjective: pt seen and examined during hd, uf 2.8 lit, follow up consult is dictated #[id number] Objective - Vital Signs/Intake and Output Vital Signs (last 24 hours): Temp Pulse Resp BP Pulse Ox 97.4 F L 92 H 20 161/88 H 100 03/17/17 09:50 03/17/17 09:50 03/17/17 09:50 03/17/17 11:50 03/17/17 09:50 Intake and Output: 03/17/17 03/17/17 06:59 18:59 Intake Total 620 Balance 620 - Medications Medications: Current Medications Acetaminophen (Tylenol 325mg Tab) 650 mg PO Q4 PRN PRN Reason: Pain, moderate (4-7) Albuterol/Ipratropium (Duoneb 3 Mg/0.5 Mg (3 Ml) Ud) 3 ml INH RQ6 [facility] Last Admin: 03/17/17 07:23 Dose: 3 ml Amlodipine Besylate (Norvasc) 10 mg PO DAILY [facility] Last Admin: 03/17/17 09:20 Dose: Not Given Amlodipine Besylate (Norvasc) 10 mg PO DAILY [facility] Last Admin: 03/17/17 09:20 Dose: Not Given Calcium Acetate (Phoslo) 667 mg PO TID [facility] Last Admin: 03/17/17 09:21 Dose: Not Given Clonazepam (Klonopin) 1 mg PO Q8 [facility] Last Admin: 03/17/17 06:20 Dose: 1 mg Epoetin David (Procrit) 10,000 unit IV TTS [facility] Last Admin: 03/17/17 12:13 Dose: 10,000 unit Escitalopram Oxalate (Lexapro) 10 mg PO DAILY [facility] Last Admin: 03/17/17 09:20 Dose: Not Given Famotidine (Pepcid) 20 mg PO DAILY [facility] Last Admin: 03/17/17 09:20 Dose: Not Given Ferric Sodium Gluconate Complex (Ferrlecit) 125 mg IVP TTS [facility] Stop: 03/19/17 10:01 Last Admin: 03/17/17 12:13 Dose: 125 mg Azithromycin 500 mg/ Sodium (Chloride) 250 mls @ 250 mls/hr IVPB Q24H [facility] Last Admin: 03/16/17 23:45 Dose: 250 mls/hr Piperacillin Sod/Tazobactam Sod (Zosyn 2.25 Gm Iv Premix) 2.25 gm in 50 mls @ 100 mls/hr IVPB Q8H [facility] Last Admin: 03/17/17 05:15 Dose: 100 mls/hr Insulin Aspart (Novolog) 0 unit SC ACHS [facility] PRN Reason: Protocol Last Admin: 03/17/17 08:28 Dose: 12 unit Methylprednisolone (Solu-Medrol) 40 mg IVP Q8H [facility] Last Admin: 03/17/17 06:20 Dose: 40 mg Metoprolol Tartrate (Lopressor) 25 mg PO BID [facility] Last Admin: 03/17/17 09:20 Dose: Not Given Paricalcitol (Zemplar) 2 mcg IV TTS [facility] Last Admin: 03/17/17 12:12 Dose: 2 mcg Quetiapine Fumarate (Seroquel) 50 mg PO HS [facility] Last Admin: 03/16/17 21:17 Dose: 50 mg Vitamin B Complex/Vit C/Folic Acid (Nephro-Autumn) 1 tab PO DAILY [facility] Last Admin: 03/17/17 09:20 Dose: Not Given - Labs Labs: 03/17/17 09:54 03/17/17 09:54 PT 10.4 SECONDS (9.7-12.2) 03/13/17 18:58 INR 0.9 03/13/17 18:58 APTT 34 SECONDS (21-34) 03/13/17 18:58
--- NOTE | 2017-03-17 12:37 | CARD ---
APPROVED REPORT EKG Measurement Heart [id number] <Conclusion> Normal sinus rhythm Normal ECG
--- NOTE | 2017-03-17 15:53 | CP.PCM.PN ---
Subjective - Date & Time of Evaluation Date of Evaluation: 03/17/17 Time of Evaluation: 15:53 - Subjective Subjective: Alert, awake, on trach collar, sats well. Respiration easy, NAD. Objective - Vital Signs/Intake and Output Vital Signs (last 24 hours): Temp Pulse Resp BP Pulse Ox 97.4 F L 84 18 162/92 H 100 03/17/17 13:05 03/17/17 13:05 03/17/17 13:05 03/17/17 13:05 03/17/17 13:05 Intake and Output: 03/17/17 03/17/17 06:59 18:59 Intake Total 620 530 Balance 620 530 - Medications Medications: Current Medications Acetaminophen (Tylenol 325mg Tab) 650 mg PO Q4 PRN PRN Reason: Pain, moderate (4-7) Albuterol/Ipratropium (Duoneb 3 Mg/0.5 Mg (3 Ml) Ud) 3 ml INH RQ6 [facility] Last Admin: 03/17/17 13:41 Dose: 3 ml Amlodipine Besylate (Norvasc) 10 mg PO DAILY [facility] Last Admin: 03/17/17 09:20 Dose: Not Given Amlodipine Besylate (Norvasc) 10 mg PO DAILY [facility] Last Admin: 03/17/17 09:20 Dose: Not Given Calcium Acetate (Phoslo) 667 mg PO TID [facility] Last Admin: 03/17/17 14:39 Dose: 667 mg Clonazepam (Klonopin) 1 mg PO Q8 [facility] Last Admin: 03/17/17 14:39 Dose: 1 mg Epoetin Dvaid (Procrit) 10,000 unit IV TTS [facility] Last Admin: 03/17/17 12:13 Dose: 10,000 unit Escitalopram Oxalate (Lexapro) 10 mg PO DAILY [facility] Last Admin: 03/17/17 09:20 Dose: Not Given Famotidine (Pepcid) 20 mg PO DAILY [facility] Last Admin: 03/17/17 09:20 Dose: Not Given Ferric Sodium Gluconate Complex (Ferrlecit) 125 mg IVP TTS [facility] Stop: 03/19/17 10:01 Last Admin: 03/17/17 12:13 Dose: 125 mg Azithromycin 500 mg/ Sodium (Chloride) 250 mls @ 250 mls/hr IVPB Q24H [facility] Last Admin: 03/16/17 23:45 Dose: 250 mls/hr Piperacillin Sod/Tazobactam Sod (Zosyn 2.25 Gm Iv Premix) 2.25 gm in 50 mls @ 100 mls/hr IVPB Q8H [facility] Last Admin: 03/17/17 15:02 Dose: 100 mls/hr Insulin Aspart (Novolog) 0 unit SC ACHS [facility] PRN Reason: Protocol Last Admin: 03/17/17 14:40 Dose: 10 unit Methylprednisolone (Solu-Medrol) 40 mg IVP Q8H [facility] Last Admin: 03/17/17 15:02 Dose: 40 mg Metoprolol Tartrate (Lopressor) 25 mg PO BID [facility] Last Admin: 03/17/17 09:20 Dose: Not Given Paricalcitol (Zemplar) 2 mcg IV TTS [facility] Last Admin: 03/17/17 12:12 Dose: 2 mcg Quetiapine Fumarate (Seroquel) 50 mg PO HS [facility] Last Admin: 03/16/17 21:17 Dose: 50 mg Vitamin B Complex/Vit C/Folic Acid (Nephro-Autumn) 1 tab PO DAILY [facility] Last Admin: 03/17/17 09:20 Dose: Not Given - Labs Labs: 03/17/17 09:54 03/17/17 09:54 PT 10.4 SECONDS (9.7-12.2) 03/13/17 18:58 INR 0.9 03/13/17 18:58 APTT 34 SECONDS (21-34) 03/13/17 18:58 Assessment and Plan - Assessment and Plan (Free Text) Assessment: is seen at the dialysis today. Awake. alert, nonverbal, not in acute distress. Has tracheostomy in place with trach collar, breathing easily. D/W DR Elvie Renteria and DR Zamudio, plan to discharge back to [facility] today. T continue with iv antibiotics for 1 week more.
[2017-03-17 16:27] VITALS: BP 181/80
[2017-03-17 17:02] VITALS: PULSE 90; RESP 20; TEMP 98.6; O2SAT 99
--- NOTE | 2017-03-17 17:08 | CP.PCM.PN ---
Subjective - Date & Time of Evaluation Date of Evaluation: 03/17/17 Time of Evaluation: 08:20 - Subjective Subjective: clinically same Objective - Vital Signs/Intake and Output Vital Signs (last 24 hours): Temp Pulse Resp BP Pulse Ox 98.6 F 90 20 181/80 H 99 03/17/17 16:00 03/17/17 16:00 03/17/17 16:00 03/17/17 16:26 03/17/17 16:00 Intake and Output: 03/17/17 03/17/17 06:59 18:59 Intake Total 620 530 Balance 620 530 - Medications Medications: Current Medications Acetaminophen (Tylenol 325mg Tab) 650 mg PO Q4 PRN PRN Reason: Pain, moderate (4-7) Albuterol/Ipratropium (Duoneb 3 Mg/0.5 Mg (3 Ml) Ud) 3 ml INH RQ6 [facility] Last Admin: 03/17/17 13:41 Dose: 3 ml Amlodipine Besylate (Norvasc) 10 mg PO DAILY [facility] Last Admin: 03/17/17 16:27 Dose: 10 mg Amlodipine Besylate (Norvasc) 10 mg PO DAILY [facility] Last Admin: 03/17/17 09:20 Dose: Not Given Calcium Acetate (Phoslo) 667 mg PO TID [facility] Last Admin: 03/17/17 14:39 Dose: 667 mg Clonazepam (Klonopin) 1 mg PO Q8 [facility] Last Admin: 03/17/17 14:39 Dose: 1 mg Epoetin David (Procrit) 10,000 unit IV TTS [facility] Last Admin: 03/17/17 12:13 Dose: 10,000 unit Escitalopram Oxalate (Lexapro) 10 mg PO DAILY [facility] Last Admin: 03/17/17 09:20 Dose: Not Given Famotidine (Pepcid) 20 mg PO DAILY [facility] Last Admin: 03/17/17 09:20 Dose: Not Given Ferric Sodium Gluconate Complex (Ferrlecit) 125 mg IVP TTS [facility] Stop: 03/19/17 10:01 Last Admin: 03/17/17 12:13 Dose: 125 mg Azithromycin 500 mg/ Sodium (Chloride) 250 mls @ 250 mls/hr IVPB Q24H [facility] Last Admin: 03/16/17 23:45 Dose: 250 mls/hr Piperacillin Sod/Tazobactam Sod (Zosyn 2.25 Gm Iv Premix) 2.25 gm in 50 mls @ 100 mls/hr IVPB Q8H [facility] Last Admin: 03/17/17 15:02 Dose: 100 mls/hr Insulin Aspart (Novolog) 0 unit SC ACHS [facility] PRN Reason: Protocol Last Admin: 03/17/17 14:40 Dose: 10 unit Methylprednisolone (Solu-Medrol) 40 mg IVP Q8H [facility] Last Admin: 03/17/17 15:02 Dose: 40 mg Metoprolol Tartrate (Lopressor) 25 mg PO BID [facility] Last Admin: 03/17/17 16:26 Dose: 25 mg Paricalcitol (Zemplar) 2 mcg IV TTS [facility] Last Admin: 03/17/17 12:12 Dose: 2 mcg Quetiapine Fumarate (Seroquel) 50 mg PO HS [facility] Last Admin: 03/16/17 21:17 Dose: 50 mg Vitamin B Complex/Vit C/Folic Acid (Nephro-Autumn) 1 tab PO DAILY [facility] Last Admin: 03/17/17 09:20 Dose: Not Given - Labs Labs: 03/17/17 09:54 03/17/17 09:54 PT 10.4 SECONDS (9.7-12.2) 03/13/17 18:58 INR 0.9 03/13/17 18:58 APTT 34 SECONDS (21-34) 03/13/17 18:58 - Constitutional Appears: Well - Head Exam Head Exam: ATRAUMATIC, NORMAL INSPECTION, NORMOCEPHALIC - Eye Exam Eye Exam: EOMI, Normal appearance, PERRL Pupil Exam: NORMAL ACCOMODATION, PERRL - ENT Exam ENT Exam: Mucous Membranes Moist, Normal Exam - Neck Exam Neck Exam: Full ROM, Normal Inspection. absent: Lymphadenopathy - Respiratory Exam Respiratory Exam: Decreased Breath Sounds - Cardiovascular Exam Cardiovascular Exam: REGULAR RHYTHM, +S1, +S2 - GI/Abdominal Exam GI & Abdominal Exam: Soft, Diminished Bowel Sounds - Rectal Exam Rectal Exam: Deferred Assessment and Plan (1) Acute renal insufficiency Status: Acute (2) Anemia Status: Acute (3) CHF (congestive heart failure) Status: Acute (4) Dehydration Status: Acute (5) ESRD (end stage renal disease) on dialysis Status: Acute (6) HTN (hypertension) Status: Acute (7) Hyponatremia Status: Acute (8) Pneumonia Status: Acute (9) SOB (shortness of breath) Status: Acute - Assessment and Plan (Free Text) Plan: Patient's further discharge Pleural fluid monitoring Discussed with Dr. beckman and patient is medically stable to discharge to her [facility] Continue same Continue antibiotic Patient for discharge today
--- NOTE | 2017-03-17 17:42 | CP.PCM.PN ---
Subjective - Date & Time of Evaluation Date of Evaluation: 03/17/17 Time of Evaluation: 11:00 - Subjective Subjective: Patient seen and examined during hemodialysis. Resting comfortably in no acute distress Still has copious secretions Afebrile Objective - Vital Signs/Intake and Output Vital Signs (last 24 hours): Temp Pulse Resp BP Pulse Ox 98.6 F 90 20 181/80 H 99 03/17/17 16:00 03/17/17 16:00 03/17/17 16:00 03/17/17 16:26 03/17/17 16:00 Intake and Output: 03/17/17 03/17/17 06:59 18:59 Intake Total 620 530 Balance 620 530 - Medications Medications: Current Medications Acetaminophen (Tylenol 325mg Tab) 650 mg PO Q4 PRN PRN Reason: Pain, moderate (4-7) Albuterol/Ipratropium (Duoneb 3 Mg/0.5 Mg (3 Ml) Ud) 3 ml INH RQ6 [facility] Last Admin: 03/17/17 13:41 Dose: 3 ml Amlodipine Besylate (Norvasc) 10 mg PO DAILY [facility] Last Admin: 03/17/17 16:27 Dose: 10 mg Amlodipine Besylate (Norvasc) 10 mg PO DAILY [facility] Last Admin: 03/17/17 09:20 Dose: Not Given Calcium Acetate (Phoslo) 667 mg PO TID [facility] Last Admin: 03/17/17 14:39 Dose: 667 mg Clonazepam (Klonopin) 1 mg PO Q8 [facility] Last Admin: 03/17/17 14:39 Dose: 1 mg Epoetin David (Procrit) 10,000 unit IV TTS [facility] Last Admin: 03/17/17 12:13 Dose: 10,000 unit Escitalopram Oxalate (Lexapro) 10 mg PO DAILY [facility] Last Admin: 03/17/17 09:20 Dose: Not Given Famotidine (Pepcid) 20 mg PO DAILY [facility] Last Admin: 03/17/17 09:20 Dose: Not Given Ferric Sodium Gluconate Complex (Ferrlecit) 125 mg IVP TTS [facility] Stop: 03/19/17 10:01 Last Admin: 03/17/17 12:13 Dose: 125 mg Azithromycin 500 mg/ Sodium (Chloride) 250 mls @ 250 mls/hr IVPB Q24H [facility] Last Admin: 03/16/17 23:45 Dose: 250 mls/hr Piperacillin Sod/Tazobactam Sod (Zosyn 2.25 Gm Iv Premix) 2.25 gm in 50 mls @ 100 mls/hr IVPB Q8H [facility] Last Admin: 03/17/17 15:02 Dose: 100 mls/hr Insulin Aspart (Novolog) 0 unit SC ACHS [facility] PRN Reason: Protocol Last Admin: 03/17/17 14:40 Dose: 10 unit Methylprednisolone (Solu-Medrol) 40 mg IVP Q8H [facility] Last Admin: 03/17/17 15:02 Dose: 40 mg Metoprolol Tartrate (Lopressor) 25 mg PO BID [facility] Last Admin: 03/17/17 16:26 Dose: 25 mg Paricalcitol (Zemplar) 2 mcg IV TTS [facility] Last Admin: 03/17/17 12:12 Dose: 2 mcg Quetiapine Fumarate (Seroquel) 50 mg PO HS [facility] Last Admin: 03/16/17 21:17 Dose: 50 mg Vitamin B Complex/Vit C/Folic Acid (Nephro-Autumn) 1 tab PO DAILY [facility] Last Admin: 03/17/17 09:20 Dose: Not Given - Labs Labs: 03/17/17 09:54 03/17/17 09:54 PT 10.4 SECONDS (9.7-12.2) 03/13/17 18:58 INR 0.9 03/13/17 18:58 APTT 34 SECONDS (21-34) 03/13/17 18:58 - Constitutional Appears: No Acute Distress - Head Exam Head Exam: ATRAUMATIC, NORMOCEPHALIC - ENT Exam ENT Exam: Normal Exam - Respiratory Exam Respiratory Exam: Decreased Breath Sounds - Cardiovascular Exam Cardiovascular Exam: REGULAR RHYTHM - GI/Abdominal Exam GI & Abdominal Exam: Soft, Normal Bowel Sounds Assessment and Plan (1) Pneumonia Assessment & Plan: Continue antibiotics and follow-up chest x-ray Try to get records from [facility] Status: Acute (2) ESRD (end stage renal disease) on dialysis Status: Acute (3) Anemia Status: Acute
--- NOTE | 2017-03-18 05:23 | CON ---
DATE: 03/17/2017 FOLLOWUP RENAL CONSULTATION LOCATION: The patient is located in room 364, bed A. REQUESTED BY: Dr. Son Renteria. REASON FOR RENAL CONSULTATION: End stage renal disease, continuation of hemodialysis. SUBJECTIVE: Mr. Herrera is a 46-year-old middle-aged male with a past medical history significant for longstanding diabetes, hypertension, anxiety, depression, endstage renal disease, respiratory failure, status post tracheostomy, was recently admitted to subacute rehab in [facility] and started dialysis in [facility] on 03/07/2017. The patient was admitted with a chief complaint of blood-tinged sputum from the tracheostomy cannula and coughing blood-tinged sputum. The patient was started on IV antibiotics, Zosyn and Zithromax. Patient is feeling much better, not in acute distress. Patient was seen and examined during dialysis this morning, UF goal is about 2.7-2.8 liters. PHYSICAL EXAMINATION: VITAL SIGNS: As follows. Blood pressure 169/100, pulse about 123, respirations 18, temperature 97.4. Saturation 100%, height 5 feet 8 inches and weight is 148 pounds. GENERAL: Mr. Herrera is a 46-year-old middle-aged male, moderately built, moderately nourished, not in acute distress, and face mask for the trach. LUNGS: Symmetric on both sides, bilateral breath sounds present, clear on auscultation. CVS: [place] at the fifth intercostal space, midclavicular line. S1 and S2 audible. No murmur. No gallop. ABDOMEN: Normal in appearance, soft, tympanic. No guarding. No rigidity. No hepatosplenomegaly. [employer]IST: Patient is alert, awake, oriented x3. Nonfocal on examination. Cranial nerves II through XII grossly intact. Sensory and motor system within normal limits. EXTREMITIES: No cyanosis, no clubbing, no edema. CURRENT MEDICATIONS: As follows. Erythromycin 500 mg daily, DuoNeb inhaler 3 mL q. 6 hours, Ferrlecit 125 mg 3 times a week, Klonopin 1 mg p.o. q. 8 hours, Lexapro 10 mg p.o. daily, Lopressor 25 mg p.o. b.i.d., Nephro-Autumn 1 tablet daily, Norvasc 10 mg p.o. daily, NovoLog insulin per sliding scale, Pepcid 20 mg p.o. daily, calcium acetate 667 mg p.o. t.i.d., Procrit 10,000 units 3 times a week, Seroquel 50 mg p.o. at bedtime, Solu-Medrol 40 mg IV q. 8 hours, Tylenol, Zemplar 2 mcg 3 times a week, and Zosyn 2.25 g IV q. 8 hours. LABORATORY DATA: Include as follows: As of 03/17/2017; WBC 13.1, hemoglobin 9.4, hematocrit is 28.4, platelets 208. Neutrophils 94, lymphs 4, monos 2. Sodium 131, potassium 4.4, chloride 92, CO2 of 21, BUN 74, creatinine 5.8, glucose 461, calcium 7.6, total bilirubin 0.4. AST 19, ALT 43. Alkaline phosphatase 124, total protein 5.5, albumin 2.8. Blood culture x2 negative day 3 and sputum culture is positive for Citrobacter freundii and Proteus mirabilis and sensitive to most of the antibiotics. ESBL is negative. ASSESSMENT AND PLAN: Mr. Herrera is a 46-year-old middle-aged male with diabetes, hypertension, status post tracheostomy, endstage renal disease, anxiety, depression, was admitted from blood-tinged sputum from the tracheostomy and found to have sputum culture positive for Citrobacter and Proteus mirabilis, sensitive to all antibiotics. Anemia, status post transfusion of 2 units of packed RBC. 1. Endstage renal disease. Continue hemodialysis 3 times a week, Thursday, , Thursday. 2. Anemia secondary to renal failure status post transfusion. Continue Ferrlecit and Epogen during dialysis. 3. Pneumonia, right side. 4. Hypertension. 5. Depression. 6. Anxiety. Continue Klonopin, Lexapro and Seroquel and also continue his current blood pressure medications, Lopressor and Norvasc and also continue IV antibiotics as per ID recommendations. Follow with pulmonary. Patient underwent hemodialysis today without any complication and ultrafiltration about 2.5 liters net. Thank you for allowing me to participate in your patient's care. Vasudeva Jonnalagadda, MD [facility] # [id number] YFN
== END 2017-03-17 19:30 | DRG 193 ==
LOC: C.ER 17:38 → C.9E 19:32 → C.3T 20:33 → OBSVTOIN 03-14 15:38
PROVIDERS: ADMIT Internal Medicine Nephrology; ATTEND Internal Medicine Nephrology
PROC: 30233N1 Transfusion of Nonautologous Red Blood Cells into Peripheral Vein, Percutaneous Approach (ICD-10-PCS; principal; 2017-03-14)
PROC: 5A1D00Z (ICD-10-PCS; 2017-03-17)
DX: J18.9 Pneumonia, unspecified organism (principal); N18.6 End stage renal disease; I50.33 Acute on chronic diastolic (congestive) heart failure; E11.22 Type 2 diabetes mellitus with diabetic chronic kidney disease; I13.2 Hypertensive heart and chronic kidney disease with heart failure and with stage 5 chronic kidney disease, or end stage renal disease; E87.1 Hypo-osmolality and hyponatremia; E86.0 Dehydration; F32.9 Major depressive disorder, single episode, unspecified; F41.9 Anxiety disorder, unspecified; Z99.2 Dependence on renal dialysis; Z79.4 Long term (current) use of insulin; D63.1 Anemia in chronic kidney disease; J39.8 Other specified diseases of upper respiratory tract; Z89.422 Acquired absence of other left toe(s)